=== PATIENT | female | born 1970 | race African-American/Black ===

== ENCOUNTER 2016-07-05 22:08 | Emergency (ER) | payer BC, OTHER ==
--- NOTE | 2016-07-05 22:23 | ER Document Report ---
ED Medical Screen (RME) - General Stated Complaint: LEFT FOOT PAIN Time seen by provider: 22:22 Mode of Arrival: Wheelchair Information source: Patient Notes: [id number] female presents to ED for pain to bilateral feet less one is worse. States she has enough pain also for a couple months. She is a diabetic and takes metformin. Pain in her feet started 2 days ago no injuries no fall. No sores redness to the feet. Pain with ambulation. Last menstrual cycle 06/14 I have greeted and performed a rapid initial assessment of this patient. A comprehensive ED assessment and evaluation of the patient, analysis of test results and completion of medical decision making process will be conducted by an additional ED providers. TRAVEL OUTSIDE OF THE [place] IN LAST 30 DAYS: No - Related Data Allergies/Adverse Reactions: No Known Allergies Allergy (Verified 04/22/16 07:56) Past Medical History - Past Medical History Cardiac Medical History: Reports: Hx Congestive Heart Failure, Hx Heart Attack - 2010, Hx Hypercholesterolemia, Hx Hypertension Pulmonary Medical History: Denies: Hx Tuberculosis Neurological Medical History: Reports: Hx Seizures Endocrine Medical History: Reports: Hx Diabetes Mellitus Type 2 Past Surgical History: Reports: Hx Section - , Hx Cholecystectomy, Hx Tonsillectomy - 1992. Denies: Hx Pacemaker - Immunizations Hx Diphtheria, Pertussis, Tetanus Vaccination: Yes Physical Exam - Vital signs Vitals: Temp Pulse Resp BP Pulse Ox 99.2 F 116 H 16 151/93 H 97 07/05/16 22:13 07/05/16 22:13 07/05/16 22:13 07/05/16 22:13 07/05/16 22:13 Course - Vital Signs Vital signs: Temp Pulse Resp BP Pulse Ox 99.2 F 116 H 16 151/93 H 97 07/05/16 22:13 07/05/16 22:13 07/05/16 22:13 07/05/16 22:13 07/05/16 22:13
[2016-07-05] MEDS ORDERED: ACETAMINOPHEN 325 MG TABLET PO ONE (22:24)
[2016-07-05 23:03] LABS: ABSOLUTE BASOPHILS # (AUTO) 0.1 10^3/uL (0.0-0.2); ABSOLUTE EOSINOPHILS # (AUTO) 0.1 10^3/uL (0.0-0.6); ABSOLUTE LYMPHOCYTES (AUTO) 2.6 10^3/uL (0.5-4.7); ABSOLUTE NEUT (AUTO) 6.1 10^3/uL (1.7-8.2); BASOPHILS % (AUTO) 0.6 % (0-2); HEMATOCRIT 33.5 % (36.0-47.0); HGB HCT DIFFERENCE -0.5; LYMPHOCYTES % (AUTO) 26.7 % (13-45); MEAN CORPUSCULAR HEMOGLOBIN 27.1 pg (27.0-33.4); MEAN CORPUSCULAR HGB CONC 32.7 g/dL (32.0-36.0); MEAN CORPUSCULAR VOLUME 83 fl (80-97); MONOCYTES % (AUTO) 10.2 % (3-13); RED BLOOD COUNT 4.05 10^6/uL (3.72-5.28); SEGMENTED NEUTROPHILS % (AUTO) 61.5 % (42-78); WHITE BLOOD COUNT 9.9 10^3/uL (4.0-10.5)
[2016-07-05 23:26] LABS: ALANINE AMINOTRANSFERASE 39 U/L (9-52); ALBUMIN 4.1 g/dL (3.5-5.0); ALKALINE PHOSPHATASE 162 U/L (38-126); ANION GAP 14 (5-19); ASPARTATE AMINO TRANSFERASE 29 U/L (14-36); BILIRUBIN,TOTAL 0.4 mg/dL (0.2-1.3); BLOOD UREA NITROGEN 11 mg/dL (7-20); CALCIUM 9.9 mg/dL (8.4-10.2); CARBON DIOXIDE 24 mmol/L (22-30); CHLORIDE 106 mmol/L (98-107); CREATININE RESULT 1.02 mg/dL (0.52-1.25); GLUCOSE 117 mg/dL (75-110); POTASSIUM 3.7 mmol/L (3.6-5.0); SODIUM 143.7 mmol/L (137-145); URIC ACID 9.6 mg/dL (2.5-7.5)
[2016-07-06] MEDS ORDERED: COLCHICINE 0.6 MG TABLET PO ONE (03:49)
[2016-07-06] MEDS ORDERED: INDOMETHACIN 50 MG CAPSULE PO ONE (03:50)
[2016-07-06] MEDS ORDERED: HYDROCODONE/ACETAMINOPHEN 5-325 MG 6 TAB/DSPK PO PRN (03:50)
--- NOTE | 2016-07-06 03:56 | ER Document Report ---
ED General - General Chief Complaint: Foot Pain Stated Complaint: LEFT FOOT PAIN Mode of Arrival: Wheelchair Notes: Patient is 45-year-old female presents with complaint of bilateral ankle pain is worse in the left. She has some swelling in her ankles is worse on left. She has a history of gout. She's had gout in both knees. She has been watching her diet. Patient also mentions that she was here in April and had reinjured a old calcaneal fracture. She was placed in a splint and crutches. She deferred or though but the number was not working for the or the office. She occasionally still uses her crutches. This was just over 2 weeks ago. She says that prior to this new onset of pain, the pain associate with her calcaneal fracture had subsided and she was doing much better. TRAVEL OUTSIDE OF THE [place] IN LAST 30 DAYS: No - Related Data Allergies/Adverse Reactions: No Known Allergies Allergy (Verified 04/22/16 07:56) Past Medical History - General Information source: Patient - Social History Smoking Status: Never Smoker Frequency of alcohol use: None Drug Abuse: None Family History: Reviewed & Not Pertinent - Past Medical History Cardiac Medical History: Reports: Hx Congestive Heart Failure, Hx Heart Attack - 2010, Hx Hypercholesterolemia, Hx Hypertension Pulmonary Medical History: Denies: Hx Tuberculosis Neurological Medical History: Reports: Hx Seizures Endocrine Medical History: Reports: Hx Diabetes Mellitus Type 2 Renal/ Medical History: Denies: Hx Peritoneal Dialysis Past Surgical History: Reports: Hx Section - 2, Hx Cholecystectomy, Hx Tonsillectomy - 1992. Denies: Hx Pacemaker - Immunizations Hx Diphtheria, Pertussis, Tetanus Vaccination: Yes Hx Pneumococcal Vaccination: 01/03/12 Review of Systems - Review of Systems Notes: My Normal Review Basic REVIEW OF SYSTEMS: CONSTITUTIONAL : Denies fever, chills, or sweats. Denies recent illness. MUSCULOSKELETAL: Bilateral ankle pain and swelling.. SKIN: Denies rash or skin lesions. NEUROLOGICAL: Denies altered mental status or loss of consciousness. Denies headache. Denies weakness or paralysis or loss of use of either side. Denies problems with gait or speech. Denies sensory or motor loss. ALL OTHER SYSTEMS REVIEWED AND NEGATIVE. Physical Exam - Vital signs Vitals: Temp Pulse Resp BP Pulse Ox 99.2 F 116 H 16 151/93 H 97 07/05/16 22:13 07/05/16 22:13 07/05/16 22:13 07/05/16 22:13 07/05/16 22:13 - Notes Notes: General Appearance: Well nourished, alert, cooperative, no acute distress, moderate obvious discomfort. Vitals: reviewed, See vital signs table. Eyes: PERRL, EOMI, Conjuctiva clear Mouth: No decreasd moisture Extremities: strength 5/5 in all extremities, good pulses in all extremities, patient has a swelling to left ankle. She also has some mild to moderate swelling of the right ankle. It was very painful to touch and painful with movement. This no redness. No evidence of infection. This no evidence of any trauma. Remainder foot is nontender., no edema. Skin: warm, dry, appropriate color, no rash Neuro: speech clear, oriented x 3, normal affect, responds appropriately to questions. Course - Vital Signs Vital signs: Temp Pulse Resp BP Pulse Ox 98.7 F 84 16 160/93 H 99 07/06/16 04:23 07/06/16 04:23 07/06/16 04:23 07/06/16 04:23 07/06/16 04:23 - Laboratory Result Diagrams: 07/05/16 22:45 07/05/16 22:45 Laboratory results interpreted by me: 07/05/16 07/05/16 22:45 22:45 Hgb 11.0 L Hct 33.5 L Est GFR (Non-Af Amer) 58 L Glucose 117 H Uric Acid 9.6 H Alkaline Phosphatase 162 H - Transfer of Care Notes: 07/06/16 07:50 I feel the patient is safe to be discharged home. She looks very well. I suspect that her ankle pain is related to gout. Her clinical exam is consistent with gout and that there is swelling and pain right ankle joint itself and pain to palpation. Also atraumatic. The repeat x-ray does not redemonstrate a calcaneal fracture. I still encourage her to use crutches until the gout flare has gone away and therefore should see if she has any recurrent pain with bearing weight. I did give her the correct number to the orthopedic office for follow-up. I encouraged return to ER if she has fevers, increased swelling, increasing pain, or she feels unwell. Patient will be placed on colchicine and indomethacin. Dictation of this chart was performed using voice recognition software; therefore, there may be some unintended grammatical errors. Discharge - Discharge Clinical Impression: Ankle pain Qualifiers: Laterality: bilateral Chronicity: acute Qualified Code(s): M25.571 - Pain in right ankle and joints of right foot Gout Qualifiers: Gout site: ankle Gout etiology: unspecified cause Laterality: unspecified laterality Chronicity: acute Qualified Code(s): M10.9 - Gout, unspecified Condition: Good Disposition: HOME, SELF-CARE Additional Instructions: Gout You have been diagnosed as having gout. Gout is a problem caused by an excess of uric acid, a natural chemical found in the body. The cause of this disease is unknown. Gout arthritis occurs when crystals of uric acid form in the joints. The big toe is the most common joint involved, but any joint can become affected. Persons with gout may also form uric acid kidney stones, resulting in flank pain and blood in the urine. Nodules of uric acid may form under the skin. The first step of treatment is to decrease the inflammation in the joint with antiinflammatory medication. Medication to lower the uric acid level in the blood may then be prescribed. This medication should be taken regularly, as any sudden change in dosage may provoke an attack of gout. Some foods, such as red meat, can provoke an attack in some gout sufferers. Call the doctor if new symptoms arise, or if you do not improve. Please return to the ER immediately if you develop worsening pain, increasing swelling, fevers, or feel unwell. Please follow up with the orthopedist for close reevaluation. Please follow up with your doctor for continued management of your gout. Please use the crutches until cleared by the orthopedist. Prescriptions: Colchicine [Colchicine 0.6 mg Tablet] 0.6 mg PO DAILY #15 tablet Indomethacin [Indocin 50 Mg Capsule] 50 mg PO TID #21 capsule Referrals: JOSÉ MIGUEL DECKER MD [Primary Care Provider] - Follow up in 3-5 days VENKATA MARTÍNEZ MD [ACTIVE STAFF] - Follow up in 3-5 days
[2016-07-06 04:25] VITALS: BP 160/93
== END 2016-07-06 04:28 | disposition home or self-care (01) ==
LOC: ER 22:08
DX: M25.572 Pain in left ankle and joints of left foot (principal); M10.9 Gout, unspecified; M79.672 Pain in left foot
CPT/HCPCS: 99283; 36415; 84550; 85025; 80053; 73630; J3490

== ENCOUNTER → 2016-10-30 | Outpatient (CLI) | payer BC ==
[2016-10-30 10:57] LABS: HEMATOCRIT 32.7 % (36.0-47.0); HEMOGLOBIN 10.7 g/dL (12.0-15.5); HGB HCT DIFFERENCE -0.6; MEAN CORPUSCULAR HEMOGLOBIN 27.3 pg (27.0-33.4); MEAN CORPUSCULAR HGB CONC 32.7 g/dL (32.0-36.0); MEAN CORPUSCULAR VOLUME 84 fl (80-97); RED BLOOD COUNT 3.91 10^6/uL (3.72-5.28); RED CELL DISTRIBUTION WIDTH 14.2 % (11.5-14.0); WHITE BLOOD COUNT 7.4 10^3/uL (4.0-10.5)
[2016-10-30 11:06] LABS: APPEARANCE,URINE SLIGHTLY-CLOUDY; BILIRUBIN,URINE NEGATIVE (NEGATIVE); GLUCOSE, URINE NEGATIVE (NEGATIVE); KETONES,URINE NEGATIVE (NEGATIVE); LEUKOCYTE ESTERASE,URINE NEGATIVE (NEGATIVE); NITRITE,URINE NEGATIVE (NEGATIVE); PROTEIN,URINE NEGATIVE (NEGATIVE); URINE SPECIFIC GRAVITY 1.025; UROBILINOGEN,URINE NEGATIVE mg/dL (<2.0)
[2016-10-30 11:32] LABS: ANION GAP 14 (5-19); BLOOD UREA NITROGEN 13 mg/dL (7-20); CALCIUM 9.4 mg/dL (8.4-10.2); CARBON DIOXIDE 23 mmol/L (22-30); CHLORIDE 105 mmol/L (98-107); CREATININE RESULT 0.98 mg/dL (0.52-1.25); GLUCOSE 131 mg/dL (75-110); POTASSIUM 4.3 mmol/L (3.6-5.0); SODIUM 141.8 mmol/L (137-145)
[2016-10-30 11:54] LABS: URINE PROTEIN 7.5 mg/dL (<12)
[2016-10-30 12:22] LABS: URINE CREATININE 294.5 mg/dL (15-278)
== END ==
LOC: OD 09:19
PROVIDERS: ATTEND Internal Medicine Nephrology
DX: I12.9 Hypertensive chronic kidney disease with stage 1 through stage 4 chronic kidney disease, or unspecified chronic kidney disease (principal); N18.3 Chronic kidney disease, stage 3 (moderate); E11.9 Type 2 diabetes mellitus without complications; D64.9 Anemia, unspecified; M10.00 Idiopathic gout, unspecified site
CPT/HCPCS: 36415; 80048; 81001; 82570; 84156; 85027; 87086; 87088

== ENCOUNTER → 2016-11-06 | Outpatient (CLI) | payer BC | LOC: OD 11:29 | PROVIDERS: ATTEND Physician Assistant Medical | DX: M10.00 Idiopathic gout, unspecified site (principal); N18.2 Chronic kidney disease, stage 2 (mild) | CPT/HCPCS: 36415; 84550 ==

== ENCOUNTER 2016-11-23 18:27 | Emergency (ER) | payer BC ==
[2016-11-23] MEDS ORDERED: ASPIRIN 81 MG TABLET, CHEWABLE PO ONE (18:44)
--- NOTE | 2016-11-23 18:47 | ER Document Report ---
ED Medical Screen (RME) - General Chief Complaint: Arm Pain Stated Complaint: LEFT ARM PAIN Time Seen by Provider: 11/23/16 18:43 Notes: Patient says that she is having pain in her left arm that started yesterday. The arm is painful to touch or move in any direction. She had pains in the center of her anterior chest from Sunday through . That pain was constant, but it is away and she does not have it today. However, she started having her left arm pain yesterday and it continues. She is concerned because she had a heart attack in 2010 in which she had left arm pain that was similar to her arm pain today. Patient has a history of gout. History of cholecystectomy. Hypertension. NIDDM. Sleep apnea. TRAVEL OUTSIDE OF THE [place] IN LAST 30 DAYS: No - Related Data Allergies/Adverse Reactions: No Known Allergies Allergy (Verified 11/23/16 18:32) Past Medical History - Past Medical History Cardiac Medical History: Reports: Hx Congestive Heart Failure, Hx Heart Attack - 2010, Hx Hypercholesterolemia, Hx Hypertension Pulmonary Medical History: Denies: Hx Tuberculosis Neurological Medical History: Reports: Hx Seizures Endocrine Medical History: Reports: Hx Diabetes Mellitus Type 2 Renal/ Medical History: Denies: Hx Peritoneal Dialysis Past Surgical History: Reports: Hx Section - , Hx Cholecystectomy, Hx Tonsillectomy - 1992. Denies: Hx Pacemaker - Immunizations Hx Diphtheria, Pertussis, Tetanus Vaccination: Yes Physical Exam - Vital signs Vitals: Temp Pulse Resp BP Pulse Ox 98.3 F 88 20 152/105 H 99 11/23/16 18:33 11/23/16 18:33 11/23/16 18:33 11/23/16 18:33 11/23/16 18:33 Course - Vital Signs Vital signs: Temp Pulse Resp BP Pulse Ox 98.3 F 88 20 152/105 H 99 11/23/16 18:33 11/23/16 18:33 11/23/16 18:33 11/23/16 18:33 11/23/16 18:33
[2016-11-23 19:17] LABS: ABSOLUTE BASOPHILS # (AUTO) 0.1 10^3/uL (0.0-0.2); ABSOLUTE EOSINOPHILS # (AUTO) 0.2 10^3/uL (0.0-0.6); ABSOLUTE LYMPHOCYTES (AUTO) 3.2 10^3/uL (0.5-4.7); ABSOLUTE MONOCYTES (AUTO) 0.9 10^3/uL (0.1-1.4); ABSOLUTE NEUT (AUTO) 4.3 10^3/uL (1.7-8.2); BASOPHILS % (AUTO) 1.1 % (0-2); EOSINOPHILS % (AUTO) 2.3 % (0-6); HEMATOCRIT 36.2 % (36.0-47.0); HEMOGLOBIN 11.8 g/dL (12.0-15.5); HGB HCT DIFFERENCE -0.8; LYMPHOCYTES % (AUTO) 36.8 % (13-45); MEAN CORPUSCULAR HEMOGLOBIN 27.5 pg (27.0-33.4); MEAN CORPUSCULAR HGB CONC 32.5 g/dL (32.0-36.0); MEAN CORPUSCULAR VOLUME 85 fl (80-97); MONOCYTES % (AUTO) 10.6 % (3-13); RED BLOOD COUNT 4.28 10^6/uL (3.72-5.28); RED CELL DISTRIBUTION WIDTH 14.4 % (11.5-14.0); SEGMENTED NEUTROPHILS % (AUTO) 49.2 % (42-78); WHITE BLOOD COUNT 8.8 10^3/uL (4.0-10.5)
--- NOTE | 2016-11-23 19:35 | RADIOLOGY REPORT (SQ) ---
EXAM DESCRIPTION: CHEST SINGLE VIEW COMPLETED DATE/TIME: 11/23/2016 7:24 pm REASON FOR STUDY: chest pain COMPARISON: 03/19/2016. EXAM PARAMETERS: NUMBER OF VIEWS: One view. TECHNIQUE: Single frontal radiographic view of the chest acquired. RADIATION DOSE: NA LIMITATIONS: None. FINDINGS: LUNGS AND PLEURA: No opacities, masses or pneumothorax. No pleural effusion. MEDIASTINUM AND HILAR STRUCTURES: No masses. Contour normal. HEART AND VASCULAR STRUCTURES: Heart normal in size. Normal vasculature. BONES: No acute findings. HARDWARE: None in the chest. OTHER: No other significant finding. IMPRESSION: NO ACUTE RADIOGRAPHIC FINDING IN THE CHEST. TECHNICAL DOCUMENTATION: JOB ID: [id number]
[2016-11-23 19:36] LABS: ALANINE AMINOTRANSFERASE 41 U/L (9-52); ALBUMIN 4.2 g/dL (3.5-5.0); ALKALINE PHOSPHATASE 148 U/L (38-126); ANION GAP 11 (5-19); ASPARTATE AMINO TRANSFERASE 32 U/L (14-36); BILIRUBIN,DIRECT 0.3 mg/dL (0.0-0.4); BILIRUBIN,TOTAL 0.4 mg/dL (0.2-1.3); BLOOD UREA NITROGEN 12 mg/dL (7-20); CARBON DIOXIDE 24 mmol/L (22-30); CHLORIDE 105 mmol/L (98-107); CREATINE KINASE 168 U/L (30-135); CREATININE RESULT 1.17 mg/dL (0.52-1.25); GLUCOSE 104 mg/dL (75-110); POTASSIUM 4.2 mmol/L (3.6-5.0); SODIUM 140.4 mmol/L (137-145); TOTAL PROTEIN 8.4 g/dL (6.3-8.2)
--- NOTE | 2016-11-23 19:38 | ER Document Report ---
ED Extremity Problem, Upper - General Chief Complaint: Arm Pain Stated Complaint: LEFT ARM PAIN Time Seen by Provider: 11/23/16 18:43 Notes: The patient is a 46-year-old female, past medical history CAD, gout, presents with 1 day of left arm pain and tingling. She was having mild chest pain yesterday, which has now resolved. She is concerned that she has a another heart attack because of the symptoms again. Pain is worse when she moves her left shoulder and elbow. She denies injury, neck pain, shortness of breath, current chest pain, fevers, rash, leg swelling, hemoptysis or cough. TRAVEL OUTSIDE OF THE [place] IN LAST 30 DAYS: No - Related Data Allergies/Adverse Reactions: No Known Allergies Allergy (Verified 11/23/16 18:32) Past Medical History - General Information source: Patient - Social History Smoking Status: Current Every Day Smoker Chew tobacco use (# tins/day): No Frequency of alcohol use: None Drug Abuse: None Family History: Reviewed & Not Pertinent Patient has suicidal ideation: No Patient has homicidal ideation: No - Past Medical History Cardiac Medical History: Reports: Hx Congestive Heart Failure, Hx Heart Attack - 2010, Hx Hypercholesterolemia, Hx Hypertension Pulmonary Medical History: Reports: Hx Asthma Denies: Hx Tuberculosis Neurological Medical History: Reports: Hx Seizures Endocrine Medical History: Reports: Hx Diabetes Mellitus Type 2 Renal/ Medical History: Denies: Hx Peritoneal Dialysis Past Surgical History: Reports: Hx Section - 2, Hx Cholecystectomy, Hx Tonsillectomy - 1992. Denies: Hx Pacemaker - Immunizations Hx Diphtheria, Pertussis, Tetanus Vaccination: Yes Hx Pneumococcal Vaccination: 01/03/12 Review of Systems - Review of Systems Notes: REVIEW OF SYSTEMS: CONSTITUTIONAL: -fevers, -chills EENT: -eye pain, -difficulty swallowing, -nasal congestion CARDIOVASCULAR:-chest pain, -syncope. RESPIRATORY: -cough, -SOB GASTROINTESTINAL: -abdominal pain, - nausea, -vomiting, -diarrhea GENITOURINARY: -dysuria, -hematuria MUSCULOSKELETAL: +left arm pain, -back pain, -neck pain SKIN: -rash or skin lesions. HEMATOLOGIC: -easy bruising or bleeding. LYMPHATIC: -swollen, enlarged glands. NEUROLOGICAL: -altered mental status or loss of consciousness, -headache, - neurologic symptoms PSYCHIATRIC: -anxiety, -depression. ALL OTHER SYSTEMS REVIEWED AND NEGATIVE. Physical Exam - Vital signs Vitals: Temp Pulse Resp BP Pulse Ox 98.3 F 88 20 152/105 H 99 11/23/16 18:33 11/23/16 18:33 11/23/16 18:33 11/23/16 18:33 11/23/16 18:33 - Notes Notes: PHYSICAL EXAMINATION: GENERAL: Well-appearing, well-nourished and in no acute distress. HEAD: Atraumatic, normocephalic. EYES: Pupils equal round and reactive to light, extraocular movements intact, sclera anicteric, conjunctiva are normal. ENT: nares patent, oropharynx clear without exudates. Moist mucous membranes. NECK: Normal range of motion, supple without lymphadenopathy LUNGS: Breath sounds clear to auscultation bilaterally and equal. No wheezes rales or rhonchi. HEART: Regular rate and rhythm without murmurs ABDOMEN: Soft, nontender, normoactive bowel sounds. No guarding, no rebound. No masses appreciated. EXTREMITIES: Tingling in left C6 distribution. Normal range of motion, no pitting or edema. No cyanosis. Strong distal pulses. NEUROLOGICAL: Cranial nerves grossly intact. Normal speech, normal gait. Normal motor exams. PSYCH: Normal mood, normal affect. SKIN: Warm, Dry, normal turgor, no rashes or lesions noted. Course - Re-evaluation Re-evalutation: Patient appears well. Her EKG, chest x-ray and labs are all unremarkable. HEART score is 2. PERC negative. Patient's pain is in the C6 distribution of her left arm. Instructed her about management of radiculopathy and referral to primary care physician and Ortho as needed. - Vital Signs Vital signs: Temp Pulse Resp BP Pulse Ox 98.3 F 88 20 152/105 H 99 11/23/16 18:33 11/23/16 18:33 11/23/16 18:33 11/23/16 18:33 11/23/16 18:33 - Laboratory Result Diagrams: 11/23/16 18:55 11/23/16 18:44 Laboratory results interpreted by me: 11/23/16 11/23/16 18:44 18:55 Hgb 11.8 L RDW 14.4 H Est GFR (Non-Af Amer) 49 L Alkaline Phosphatase 148 H Creatine Kinase 168 H Total Protein 8.4 H - Diagnostic Test Radiology reviewed: Image reviewed, Reports reviewed Radiology results interpreted by me: CXR: NAD - EKG Interpretation by Me EKG shows normal: Sinus rhythm, [place], Intervals, QRS Complexes, ST-T Waves Rate: Normal Discharge - Discharge Clinical Impression: Radiculopathy of arm Chest pain Qualifiers: Chest pain type: unspecified Qualified Code(s): R07.9 - Chest pain, unspecified Condition: Stable Disposition: HOME, SELF-CARE Additional Instructions: Radiculopathy Radiculopathy is irritation of a nerve. Sometimes this is called "pinched nerve." The pain can be sharp and stabbing, constant and dull, or burning in nature. The pain can occur in any area of the chest, shoulders, or arms. Sometimes the pain is provoked by coughing or moving. Radiculopathy can be caused by physical pressure on a nerve, such as a herniated disc or swollen joint in the spine. It can also be caused by viral infections within the nerve or by nerve damage due to diabetes or blood vessel disease. Radicular pain is treated with antiinflammatory medicine. Injections may help resistant cases, if we can identify a single nerve that's causing the pain. Surgery is usually not necessary. If symptoms do not improve with time, you may need additional testing, such as an MRI or EMG (electromyogram). Return if there is local weakness or numbness, shortness of breath, increasing pain, or other new symptoms. CHEST PAIN OF UNCLEAR CAUSE: The exact cause of your chest pain isn't clear. Fortunately, there is no evidence of a dangerous medical condition. Further testing may be required to find the source of the pain. Most often, we find that this pain is coming from the chest wall -- the muscles or rib joints in the chest. But chest pain can come from the lung and lung lining, the esophagus, the heart valves or heart lining, and even the stomach or gallbladder. Rest. Eat lightly until the pain is gone. We may prescribe medicine for pain and inflammation. You should call the physician immediately if the pain radiates to the shoulder, jaw or arms; if you start to run a fever or develop a cough; or if you develop shortness of breath, or other new or alarming symptoms. NORMAL EXAM AND WORKUP: At this time, your examination and workup show no significant abnormality. No significant abnormal physical findings were noted. All laboratory, EKG, and imaging (x-ray, CT scans, ultrasound) studies that were ordered show no significant abnormality. Although your examination and all studies that were ordered showed no significant abnormal finding, there are no examinations and no studies that are 100% accurate. There is always the possibility that some abnormality could exist and not be detected with physical examination or within the limits and capabilities of laboratory and other studies. You should return or follow up as you were instructed on your visit today for further evaluation if your symptoms do not resolve. FOLLOW-UP CARE: If you have been referred to a physician for follow-up care, call the physician s office for an appointment as you were instructed or within the next two days. If you experience worsening or a significant change in your symptoms, notify the physician immediately or return to the Emergency Department at any time for re-evaluation. Forms: Elevated Blood Pressure
[2016-11-23 19:49] LABS: CREATINE KINASE MB 0.53 ng/mL (<4.55)
[2016-11-23 19:53] LABS: TROPONIN I < 0.012 ng/mL
[2016-11-23] MEDS ORDERED: NAPROXEN 250 MG TABLET PO ONE (20:14)
[2016-11-23 20:18] VITALS: BP 162/80
--- NOTE | 2016-11-24 08:08 | EKG REPORT ---
SEVERITY:- NORMAL ECG - SINUS RHYTHM : Confirmed by: Chase Bender MD 24-Nov-2016 08:08:06
== END 2016-11-23 20:35 | disposition home or self-care (01) ==
LOC: ER 18:27
DX: R07.9 Chest pain, unspecified (principal); M54.10 Radiculopathy, site unspecified; M79.602 Pain in left arm; I25.10 Atherosclerotic heart disease of native coronary artery without angina pectoris; R20.0 Anesthesia of skin; F17.200 Nicotine dependence, unspecified, uncomplicated
CPT/HCPCS: 36415; 71010; 80053; 82550; 82553; 84484; 85025; 93005; 93010; 99284

== ENCOUNTER → 2017-02-16 | Outpatient (CLI) | payer BC ==
[2017-02-16 12:05] LABS: HEMATOCRIT 34.5 % (36.0-47.0); HEMOGLOBIN 11.8 g/dL (12.0-15.5); HGB HCT DIFFERENCE 0.9; MEAN CORPUSCULAR HGB CONC 34.3 g/dL (32.0-36.0); MEAN CORPUSCULAR VOLUME 82 fl (80-97); RED BLOOD COUNT 4.23 10^6/uL (3.72-5.28); WHITE BLOOD COUNT 7.3 10^3/uL (4.0-10.5)
[2017-02-16 12:09] LABS: APPEARANCE,URINE CLEAR; BILIRUBIN,URINE NEGATIVE (NEGATIVE); GLUCOSE, URINE NEGATIVE (NEGATIVE); KETONES,URINE NEGATIVE (NEGATIVE); LEUKOCYTE ESTERASE,URINE NEGATIVE (NEGATIVE); NITRITE,URINE NEGATIVE (NEGATIVE); PROTEIN,URINE 100 mg/dL (NEGATIVE); URINE SPECIFIC GRAVITY 1.017; UROBILINOGEN,URINE NEGATIVE mg/dL (<2.0)
[2017-02-16 12:29] LABS: ANION GAP 12 (5-19); BLOOD UREA NITROGEN 11 mg/dL (7-20); CALCIUM 10.3 mg/dL (8.4-10.2); CARBON DIOXIDE 23 mmol/L (22-30); CHLORIDE 107 mmol/L (98-107); CREATININE RESULT 0.98 mg/dL (0.52-1.25); GLUCOSE 109 mg/dL (75-110); POTASSIUM 4.1 mmol/L (3.6-5.0); SODIUM 141.5 mmol/L (137-145)
== END ==
LOC: OD 11:19
PROVIDERS: ATTEND Physician Assistant Medical
DX: N18.2 Chronic kidney disease, stage 2 (mild) (principal); M10.00 Idiopathic gout, unspecified site; D64.9 Anemia, unspecified
CPT/HCPCS: 36415; 80048; 81001; 85027

== ENCOUNTER 2017-02-18 23:04 | Emergency (ER) | payer BC ==
--- NOTE | 2017-02-19 02:26 | ER Document Report ---
HPI - HPI Patient complains to provider of: nose bleed Pain Level: Denies Context: Patient is a 46-year-old female comes emergency department for chief complaint of nose bleeding from the left nostril. She states that she began bleeding with dripping blood and tasting blood on the back of her throat, she states this continued for an hour and she became worried. Bleeding is stopped before she came to the emergency department. She denies headache, denies chest pain, denies any other symptoms. She states that she just got over a cold and has been taking NyQuil including the past day multiple times a day. She is also on aspirin. She has a past medical history of hypertension and takes 3 medications for this although she is not sure of the names at this time. She states she has been compliant but she is due for a dose. - REPRODUCTIVE Reproductive: DENIES: : - DERM Skin Color: Normal Past Medical History - General Information source: Patient - Social History Smoking Status: Never Smoker Frequency of alcohol use: None Drug Abuse: None Lives with: Family Family History: Reviewed & Not Pertinent Patient has homicidal ideation: No - Past Medical History Cardiac Medical History: Reports: Hx Congestive Heart Failure, Hx Heart Attack - 2010, Hx Hypercholesterolemia, Hx Hypertension Pulmonary Medical History: Reports: Hx Asthma Denies: Hx Tuberculosis Neurological Medical History: Reports: Hx Seizures Endocrine Medical History: Reports: Hx Diabetes Mellitus Type 2 Renal/ Medical History: Denies: Hx Peritoneal Dialysis Past Surgical History: Reports: Hx Section - 2, Hx Cholecystectomy, Hx Tonsillectomy - 1992. Denies: Hx Pacemaker - Immunizations Hx Diphtheria, Pertussis, Tetanus Vaccination: Yes Hx Pneumococcal Vaccination: 01/03/12 Vertical Provider Document - CONSTITUTIONAL General Appearance: WD/WN, No Apparent Distress - INFECTION CONTROL TRAVEL OUTSIDE OF THE [place] IN LAST 30 DAYS: No - HEENT HEENT: Atraumatic, Normal ENT Exam - There is a tiny amount of dried blood in the left nasal passage but otherwise her examination is unremarkable, Normocephalic - NECK Neck: Normal Inspection - RESPIRATORY Respiratory: Breath Sounds Normal, No Respiratory Distress O2 Sat by Pulse Oximetry: 96 - CARDIOVASCULAR Cardiovascular: Regular Rate, Regular Rhythm - GI/ABDOMEN Gastrointestinal: Abdomen Soft, Abdomen Non-Tender - BACK Back: Normal Inspection - MUSCULOSKELETAL/EXTREMETIES Musculoskeletal/Extremeties: MAEW, FROM, Non-Tender - NEURO Level of Consciousness: Awake, Alert, Appropriate Course - Re-evaluation Re-evalutation: Patient is hypertensive. I rechecked it at bedside and her systolic is 180. She is due for medication. She is asymptomatic otherwise, she does not have any rebleeding and has not had it for over 3 hours. She kind of has a set up for bleeding with recent use of antihistamine, aspirin, hypertension, and she admits that she was "putting vapor rub and similar items in her nose which I believe caused irritation. She was advised against this. She was provided with bacitracin, Q-tips, she states that she will take her blood pressure medication immediately when she gets home, I discussed return precautions in detail with patient, patient states understanding and agreement. - Vital Signs Vital signs: Temp Pulse Resp BP Pulse Ox 96 F L 88 18 206/100 H 96 02/18/17 23:15 02/18/17 23:15 02/18/17 23:15 02/18/17 23:15 02/18/17 23:15 Discharge - Discharge Clinical Impression: Epistaxis Condition: Stable Disposition: HOME, SELF-CARE Additional Instructions: There is a significant chance of re-bleeding following a nosebleed. Proper care makes this less likely. Avoid anti-histamines such as benadryl for now. Do not touch the nose for 24 hours. Do not blow the nose forcefully for one week. After 24 hours, gently apply Vaseline ointment or the given Antibiotic ointment to both nostrils with the tip of a finger or Q-tip, three times a day, for one week. Humidity in the bedroom, and petroleum jelly applied to the nostrils at night may help as well. It's normal to have a bloody mucous discharge for a few days. If active bleeding recurs, blow all the blood from the nose, then sit quietly and pinch the nose as firmly as possible for 10 minutes. If this does not stop the bleeding, return for further care. Forms: Elevated Blood Pressure Referrals: LOKESH CASILLAS, [employer] [Primary Care Provider] - Follow up as needed
[2017-02-19 02:27] VITALS: BP 184/95
== END 2017-02-19 02:39 | disposition home or self-care (01) ==
LOC: ER 23:04
DX: R04.0 Epistaxis (principal); I50.9 Heart failure, unspecified; I11.0 Hypertensive heart disease with heart failure; E78.00 Pure hypercholesterolemia, unspecified; E11.9 Type 2 diabetes mellitus without complications; I25.2 Old myocardial infarction; Z79.82 Long term (current) use of aspirin; Z90.49 Acquired absence of other specified parts of digestive tract
CPT/HCPCS: 99283

== ENCOUNTER → 2017-04-26 | Outpatient (CLI) | payer BC ==
[2017-04-26 11:55] LABS: ALANINE AMINOTRANSFERASE 47 U/L (9-52); ALBUMIN 4.1 g/dL (3.5-5.0); ALKALINE PHOSPHATASE 140 U/L (38-126); ASPARTATE AMINO TRANSFERASE 34 U/L (14-36); BILIRUBIN,DIRECT 0.2 mg/dL (0.0-0.4); BILIRUBIN,TOTAL 0.3 mg/dL (0.2-1.3); CHOLESTEROL 236.23 mg/dL (0-200); Direct HDL 54 mg/dL (>40); TOTAL PROTEIN 7.7 g/dL (6.3-8.2); TRIGLYCERIDES 185 mg/dL (<150)
[2017-04-26 12:08] LABS: DIRECT LDL 145 mg/dL (<100)
== END ==
LOC: OD 10:00
PROVIDERS: ATTEND Internal Medicine
DX: E78.5 Hyperlipidemia, unspecified (principal); Z79.899 Other long term (current) drug therapy
CPT/HCPCS: 36415; 80061; 80076; 84443

== ENCOUNTER → 2017-08-24 | Outpatient (CLI) | payer BC ==
[2017-08-24 14:53] LABS: HEMATOCRIT 34.8 % (36.0-47.0); HEMOGLOBIN 11.5 g/dL (12.0-15.5); MEAN CORPUSCULAR HEMOGLOBIN 27.2 pg (27.0-33.4); MEAN CORPUSCULAR VOLUME 82 fl (80-97); PLATELET COUNT 228 10^3/uL (150-450); RED BLOOD COUNT 4.22 10^6/uL (3.72-5.28); RED CELL DISTRIBUTION WIDTH 15.1 % (11.5-14.0); WHITE BLOOD COUNT 6.3 10^3/uL (4.0-10.5)
[2017-08-24 15:07] LABS: APPEARANCE,URINE CLOUDY; BILIRUBIN,URINE NEGATIVE (NEGATIVE); GLUCOSE, URINE NEGATIVE (NEGATIVE); KETONES,URINE NEGATIVE (NEGATIVE); LEUKOCYTE ESTERASE,URINE NEGATIVE (NEGATIVE); NITRITE,URINE NEGATIVE (NEGATIVE); PROTEIN,URINE NEGATIVE (NEGATIVE); URINE SPECIFIC GRAVITY 1.017
[2017-08-24 15:14] LABS: COLOR,URINE YELLOW
[2017-08-24 15:18] LABS: ANION GAP 12 (5-19); BLOOD UREA NITROGEN 12 mg/dL (7-20); CALCIUM 9.6 mg/dL (8.4-10.2); CARBON DIOXIDE 27 mmol/L (22-30); CHLORIDE 101 mmol/L (98-107); GLUCOSE 186 mg/dL (75-110); POTASSIUM 3.9 mmol/L (3.6-5.0); SODIUM 139.6 mmol/L (137-145); URIC ACID 6.5 mg/dL (2.5-7.5)
== END ==
LOC: OD 13:39
PROVIDERS: ATTEND Physician Assistant Medical
DX: I10 Essential (primary) hypertension (principal); E11.9 Type 2 diabetes mellitus without complications; M10.00 Idiopathic gout, unspecified site
CPT/HCPCS: 36415; 80048; 81001; 84550; 85027

== ENCOUNTER → 2018-02-18 | Outpatient (CLI) | payer BC ==
[2018-02-18 15:35] LABS: HEMATOCRIT 33.9 % (36.0-47.0); HEMOGLOBIN 11.7 g/dL (12.0-15.5); MEAN CORPUSCULAR HEMOGLOBIN 28.1 pg (27.0-33.4); MEAN CORPUSCULAR HGB CONC 34.5 g/dL (32.0-36.0); MEAN CORPUSCULAR VOLUME 82 fl (80-97); PLATELET COUNT 221 10^3/uL (150-450); RED BLOOD COUNT 4.15 10^6/uL (3.72-5.28); RED CELL DISTRIBUTION WIDTH 14.1 % (11.5-14.0); WHITE BLOOD COUNT 6.5 10^3/uL (4.0-10.5)
[2018-02-18 15:59] LABS: ANION GAP 11 (5-19); BLOOD UREA NITROGEN 10 mg/dL (7-20); CALCIUM 9.9 mg/dL (8.4-10.2); CARBON DIOXIDE 22 mmol/L (22-30); CHLORIDE 108 mmol/L (98-107); GLUCOSE 111 mg/dL (75-110); SODIUM 141.3 mmol/L (137-145)
[2018-02-18 16:15] LABS: APPEARANCE,URINE CLEAR; BILIRUBIN,URINE SMALL (NEGATIVE); COLOR,URINE YELLOW; GLUCOSE, URINE NEGATIVE (NEGATIVE); KETONES,URINE NEGATIVE (NEGATIVE); PROTEIN,URINE NEGATIVE (NEGATIVE); URINE SPECIFIC GRAVITY 1.021
[2018-02-18 16:16] LABS: ADD MANUAL MICROSCOPIC YES; BACTERIA,URINE 3+ /HPF; LEUKOCYTE ESTERASE,URINE NEGATIVE (NEGATIVE); NITRITE,URINE NEGATIVE (NEGATIVE); WBC,URINE 0-1 /HPF
[2018-02-20 10:38] LABS: CREATININE URINE 293.5 mg/dL (Not Estab.); MICROALBUMIN URINE 26.4 ug/mL (Not Estab.)
== END ==
LOC: OD 14:34
PROVIDERS: ATTEND Physician Assistant Medical
DX: I12.9 Hypertensive chronic kidney disease with stage 1 through stage 4 chronic kidney disease, or unspecified chronic kidney disease (principal); E11.22 Type 2 diabetes mellitus with diabetic chronic kidney disease; N18.2 Chronic kidney disease, stage 2 (mild); R80.9 Proteinuria, unspecified
CPT/HCPCS: 36415; 80048; 81001; 82043; 82570; 85027

== ENCOUNTER 2018-04-03 19:55 | Observation (INO) | payer BC ==
[2018-04-03] MEDS ORDERED: ASPIRIN 81 MG TABLET, CHEWABLE PO ONE (20:05)
--- NOTE | 2018-04-03 20:28 | ER Document Report ---
ED General - General Mode of Arrival: Ambulatory Information source: Patient TRAVEL OUTSIDE OF THE [place] IN LAST 30 DAYS: No <CHRIS HERRERA - Last Filed: 04/03/18 21:00> <TAMIKA OLIVARES - Last Filed: 04/04/18 01:20> - General Chief Complaint: Chest Pain > 30 Stated Complaint: CHEST PAIN Time Seen by Provider: 04/03/18 20:12 Notes: Patient is a 47-year-old female with HTN, high cholesterol, diabetes type 2, gout and a history of NM (2010 and 2017) presents to the emergency department complaining of chest pain onset today. Patient states that the chest pain is located sternally and radiates into the left upper chest, left hand and right arm. She states describes the pain in her arm and hand as a numbness. She states her current symptoms feel similar to her previous MIs. Patient reports taking 1, 81 mg of aspirin this morning and 3 nitroglycerin which did not alleviate her pain. She also complains of vomiting, trouble breathing and diaphoresis. states the patient did not have any stents placed after her 2 MIs. Patient also mentions seeing Dr. Yao for "kidney problems" but does not further elaborate. Patient is currently on Plavix. (CHRIS HERRERA) - Related Data Allergies/Adverse Reactions: No Known Allergies Allergy (Verified 11/23/16 18:32) Past Medical History - General Information source: Patient - Social History Smoking Status: Former Smoker - quit 7 years ago as of 2018 Cigarette use (# per day): No Chew tobacco use (# tins/day): No Smoking Education Provided: No Frequency of alcohol use: None Family History: Reviewed & Not Pertinent - Past Medical History Cardiac Medical History: Reports: Hx Congestive Heart Failure, Hx Heart Attack - 2010, Hx Hypercholesterolemia, Hx Hypertension Pulmonary Medical History: Reports: Hx Asthma Neurological Medical History: Reports: Hx Seizures Endocrine Medical History: Reports: Hx Diabetes Mellitus Type 2 Past Surgical History: Reports: Hx Section - , Hx Cholecystectomy, Hx Tonsillectomy - 1992 - Immunizations Hx Diphtheria, Pertussis, Tetanus Vaccination: Yes Hx Pneumococcal Vaccination: 01/03/12 <CHRIS HERRERA - Last Filed: 04/03/18 21:00> Review of Systems - Review of Systems Constitutional: See HPI, Diaphoresis EENT: No symptoms reported Cardiovascular: See HPI, Chest pain Respiratory: See HPI Gastrointestinal: See HPI, Vomiting Genitourinary: No symptoms reported Female Genitourinary: No symptoms reported Musculoskeletal: No symptoms reported Skin: No symptoms reported Hematologic/Lymphatic: No symptoms reported Neurological/Psychological: No symptoms reported -: Yes All other systems reviewed and negative <SHARONCHRIS - Last Filed: 04/03/18 21:00> Physical Exam <CHRIS HERRERA - Last Filed: 04/03/18 21:00> <TAMIKA OLIVARES - Last Filed: 04/04/18 01:20> - Vital signs Vitals: Temp Pulse Resp BP Pulse Ox 97.6 F 77 18 189/93 H 100 04/03/18 20:00 04/03/18 20:00 04/03/18 20:00 04/03/18 20:00 04/03/18 20:00 - Notes Notes: GENERAL: Alert, interacts well. No acute distress. HEAD: Normocephalic, atraumatic. EYES: Pupils equal, round, and reactive to light. Extraocular movements intact. ENT: Oral mucosa moist, tongue midline. NECK: Full range of motion. Supple. Trachea midline. LUNGS: Clear to auscultation bilaterally, no wheezes, rales, or rhonchi. No respiratory distress. HEART: Regular rate and rhythm. No murmurs, gallops, or rubs. ABDOMEN: Soft, non-tender. Non-distended. Bowel sounds present in all 4 quadrants. EXTREMITIES: Moves all 4 extremities spontaneously. No edema, radial and dorsalis pedis pulses 2/4 bilaterally. No cyanosis. NEUROLOGICAL: Alert and oriented x3. Normal speech. PSYCH: Normal affect, normal mood. SKIN: Warm, dry, normal turgor. No rashes or lesions noted. (SHARONCHRIS) Course - Laboratory Result Diagrams: 04/03/18 20:20 04/03/18 20:20 <SHARONALYXANDREW - Last Filed: 04/03/18 21:00> - Laboratory Result Diagrams: 04/03/18 20:20 04/03/18 20:20 <TAMIKA OLIVARES - Last Filed: 04/04/18 01:20> - Re-evaluation Re-evalutation: 04/04/18 01:18 CBC unremarkable, CMP shows slightly elevated creatinine 1.26 which is higher than her baseline, CK is elevated at 157, CK-MB is normal, initial troponin is undetectable at 0.012, repeated 4 hours later it is 0.015, lipase only mildly elevated at 540.6, abdominal ultrasound shows she is status post cholecystectomy and the pancreas is not visualized due to overlying bowel gas. Chest x-ray shows no acute process. 04/04/18 01:19 EKG is nonischemic. Given the patient's history of 2 prior MIs and the fact that we are unable to obtain the cardiac catheterization report this evening we do feel it is important to observe the patient to trend her enzymes until they stop elevating. I discussed the patient with Dr. Hung who agreed to place the patient on his service in observation status. (TAMIKA OLIVARES) - Vital Signs Vital signs: Temp Pulse Resp BP Pulse Ox 97.6 F 77 16 150/76 H 100 04/03/18 20:00 04/03/18 20:00 04/03/18 23:01 04/03/18 23:01 04/03/18 23:01 - Laboratory Laboratory results interpreted by me: 04/03/18 04/03/18 20:20 20:20 Hct 35.9 L RDW 14.4 H Creatinine 1.26 H Est GFR ( Amer) 55 L Est GFR (Non-Af Amer) 45 L Alkaline Phosphatase 207 H Creatine Kinase 157 H Lipase 540.6 H - EKG Interpretation by Me Additional EKG results interpreted by me: 04/04/18 01:18 EKG shows sinus rhythm at a rate of 72, normal axis, normal intervals, no ST segment questions, there are isolated T wave inversions in lead III per my interpretation. Repeat EKG at 2235 is essentially unchanged, normal axis, first-degree AV block with SC interval of 208, no ST segment elevations or depressions, isolated T wave inversions in lead III per my interpretation. (TAMIKA OLIVARES) Discharge <CHRIS HERRERA - Last Filed: 04/03/18 21:00> - Discharge Admitting Provider: [facility] Admitted: Telemetry <TAMIKA OLIVARES - Last Filed: 04/04/18 01:20> - Discharge Clinical Impression: Chest pain, rule out acute myocardial infarction Pancreatitis Qualifiers: Chronicity: acute Pancreatitis type: unspecified pancreatitis type Acute pancreatitis complication: unspecified Qualified Code(s): K85.90 - Acute pancreatitis without necrosis or infection, unspecified Condition: Fair Disposition: ADMITTED OBSERVATION Referrals: ANDREA ACOSTA PA-C [ALLIED HEALTH PROFESSIONAL] - Follow up as needed Scribe Attestation: 04/04/18 01:20 I personally performed the services described in the documentation, reviewed and edited the documentation which was dictated to the scribe in my presence, and it accurately records my words and actions. (TAMIKA OLIVARES) Scribe Documentation - Scribe Written by Scribe:: Cullen Larson, 04/03/2018 20:58 acting as scribe for :: Shelbi <CHRIS HERRERA - Last Filed: 04/03/18 21:00>
[2018-04-03 20:31] LABS: ABSOLUTE EOSINOPHILS # (AUTO) 0.2 10^3/uL (0.0-0.6); ABSOLUTE LYMPHOCYTES (AUTO) 3.1 10^3/uL (0.5-4.7); ABSOLUTE MONOCYTES (AUTO) 0.9 10^3/uL (0.1-1.4); ABSOLUTE NEUT (AUTO) 3.8 10^3/uL (1.7-8.2); BASOPHILS % (AUTO) 0.4 % (0-2); HEMATOCRIT 35.9 % (36.0-47.0); HEMOGLOBIN 12.2 g/dL (12.0-15.5); LYMPHOCYTES % (AUTO) 38.4 % (13-45); MEAN CORPUSCULAR HEMOGLOBIN 28.2 pg (27.0-33.4); MEAN CORPUSCULAR VOLUME 83 fl (80-97); MONOCYTES % (AUTO) 11.1 % (3-13); PLATELET COUNT 221 10^3/uL (150-450); RED BLOOD COUNT 4.32 10^6/uL (3.72-5.28); RED CELL DISTRIBUTION WIDTH 14.4 % (11.5-14.0); SEGMENTED NEUTROPHILS % (AUTO) 48.1 % (42-78); TOTAL CELLS COUNTED % (AUTO) 100 %
[2018-04-03] MEDS: NITROGLYCERIN 0.4 MG/TAB 25 TAB/BOTTLE SL PRN ×3 (20:33→20:47)
[2018-04-03 20:52] LABS: ALANINE AMINOTRANSFERASE 32 U/L (9-52); ALKALINE PHOSPHATASE 207 U/L (38-126); ANION GAP 11 (5-19); ASPARTATE AMINO TRANSFERASE 29 U/L (14-36); BILIRUBIN,DIRECT 0.3 mg/dL (0.0-0.4); BILIRUBIN,TOTAL 0.4 mg/dL (0.2-1.3); BLOOD UREA NITROGEN 14 mg/dL (7-20); CALCIUM 10.2 mg/dL (8.4-10.2); CARBON DIOXIDE 26 mmol/L (22-30); CHLORIDE 107 mmol/L (98-107); CREATINE KINASE 157 U/L (30-135); GLUCOSE 104 mg/dL (75-110); LIPASE 540.6 U/L (23-300); POTASSIUM 4.4 mmol/L (3.6-5.0); SODIUM 144.1 mmol/L (137-145); TOTAL PROTEIN 7.8 g/dL (6.3-8.2)
[2018-04-03 21:04] LABS: CREATINE KINASE MB 0.47 ng/mL (<4.55); TROPONIN I < 0.012 ng/mL
--- NOTE | 2018-04-03 21:19 | RADIOLOGY REPORT (SQ) ---
XR CHEST 1 VIEW HISTORY: Chest pain. COMPARISON: 11/23/2016 FINDINGS: Query mild cardiomegaly. Lungs are clear. No pleural effusion or pneumothorax is seen. No acute osseous findings. IMPRESSION: No acute cardiopulmonary abnormality.
--- NOTE | 2018-04-03 23:47 | RADIOLOGY REPORT (SQ) ---
US ABDOMEN LIMITED HISTORY: Elevated lipase. Pain after eating. COMPARISON: None. TECHNIQUE: Grayscale and color Doppler imaging of the right upper quadrant was performed. FINDINGS: The liver measures 17.0 cm. Increased echogenicity of the hepatic parenchyma with decreased through transmission and poor visualization of the portal triads, suggesting hepatic steatosis. The main portal vein has normal hepatopedal flow. Status post cholecystectomy. Common bile duct measures 3 mm in caliber. The pancreas is not well-visualized due to overlying bowel gas. Right kidney measures 10.8 cm in length, without hydronephrosis. Visualized portions of the IVC and aorta are patent. IMPRESSION: Pancreas is poorly visualized due to overlying bowel gas and body habitus. Status post cholecystectomy. Mild hepatomegaly and hepatic steatosis.
[2018-04-04] MEDS ORDERED: GLUCAGON,HUMAN RECOMB 1 MG INJ SUBCUT PRN (02:10)
[2018-04-04] MEDS ORDERED: NITROGLYCERIN 0.4 MG/TAB 25 TAB/BOTTLE SL PRN (02:10)
[2018-04-04] MEDS ORDERED: DEXTROSE 40% GEL 15 GM TUBE PO PRN ×2 (02:10)
[2018-04-04] MEDS ORDERED: DEXTROSE 50%-WATER 25 GM/50 ML DISP.SYRIN IV PRN ×2 (02:10)
[2018-04-04] MEDS ORDERED: ATORVASTATIN CALCIUM 80 MG TABLET PO ONE (02:30)
[2018-04-04] MEDS: VALSARTAN 80 MG TABLET PO SCH ×2 (03:07→10:11)
[2018-04-04] MEDS ORDERED: NITROGLYCERIN 2% OINTMENT 1 GM PACKET ONE (05:49)
[2018-04-04] MEDS ORDERED: ENALAPRILAT DIHYDRATE INJ/PF 1.25 MG/1 ML SDV IV ONE ×2 (05:49→06:00)
[2018-04-04] MEDS ORDERED: INSULIN LISPRO 100 UNIT/ML 3 ML VIAL SUBCUT PRN (05:50)
[2018-04-04] MEDS ORDERED: NITROGLYCERIN 2% OINTMENT 1 GM PACKET TP ONE (06:00)
[2018-04-04] MEDS ORDERED: LACTULOSE SYRUP 20 GM/30 ML UDCUP PO ONE (06:21)
--- NOTE | 2018-04-04 06:32 | PDOC H&P ---
History of Present Illness Admission Date/PCP: 04/04/18 01:28 AYANA DECKER MD Patient complains of: Chest pain and uncontrolled blood pressure History of Present Illness: ARMIDA HILLS is a 47 year old female with a past medical history of goiter, morbid obesity, obstructive sleep apnea, hypertension, coronary artery disease stage II chronic kidney disease and diabetes. Patient complains of 2 weeks of chest pain occurring at rest and uncontrolled blood pressure in the 200 systolic range despite increased frequency of clonidine recommended by her collar closer lockstitch Dr. Frank Yao. Patient states NV times 06/2010 and 2017 with cardiac catheterization without stenting 5 months ago. She is unable to identify alleviating or exacerbating factors, it is dull in nature and radiates to the left side, associated with shortness of breath. Denies palpitations nausea or vomiting. In the emergency room she is found to have a blood pressure of 210/110 without significant EKG changes or lab findings she receives nitroglycerin, Lasix and referred to the hospitalist for admission. She is currently pain-free. She admits excessive fatigue, daytime sleepiness and noncompliance with CPAP over the last month. Past Medical History Cardiac Medical History: Reports: Congestive Heart Failure, Myocardial Infarction - 2010 AND 2017, Hyperlipidema, Hypertension Pulmonary Medical History: Reports: Asthma Denies: Tuberculosis Neurological Medical History: Reports: Seizures Endocrine Medical History: Reports: Diabetes Mellitus Type 2 Past Surgical History Past Surgical History: Reports: Section - 2, Cholecystectomy, Tonsillectomy - 1992 Denies: Pacemaker Social History Smoking Status: Former Smoker Hx Recreational Drug Use: No Hx Prescription Drug Abuse: No Family History Family History: Reviewed & Not Pertinent Parental Family History Reviewed: Yes Children Family History Reviewed: Yes Sibling(s) Family History Reviewed.: Yes Medication/Allergy Home Medications: Nitroglycerin [Nitrostat 0.4 mg (1/150 Gr) Tabs 25/Bottle] 0.4 mg SL Q5MP PRN Bupropion HCl [Bupropion HCl Sr] 150 mg PO DAILY 08/23/13 Carvedilol [Coreg 25 mg Tablet] 1 tab PO BID 08/23/13 Furosemide [Lasix 20 mg Tablet] 20 mg PO QAM 08/23/13 Lisinopril/Hydrochlorothiazide [Lisinopril-Hctz 20-25 mg Tab] 1 each PO BID 04/26 Methocarbamol [Robaxin] 500 mg PO DAILY 08/23/13 Nifedipine [Nifedipine ER] 30 mg PO DAILY 08/23/13 Nitroglycerin [Nitrostat] 0.3 mg SL PRN PRN #30 tab.subl 08/23/13 Omeprazole 20 mg PO QAM 08/23/13 Albuterol Sulfate [Proair HFA Inhalation Aerosol 8.5 gm MDI] 2 puff IH Q4H PRN # 1 mdi 10/05/15 Fluticasone Propionate [Flonase Nasal Diboll 50 Mcg/Diboll 16 gm] 1 spray NASL Q12 #1 inhaler 10/05/15 Prednisone [Deltasone 20 mg Tablet] 2 tab PO DAILY #8 tablet 10/05/15 Hydrocodone/Acetaminophen [Parker 5-325 Tablet] 1 each PO Q4HP PRN #20 tablet Prednisone [Deltasone 20 mg Tablet] 3 tab PO DAILY 5 Days tablet 03/03/16 Oxycodone HCl/Acetaminophen [Percocet 5-325 mg Tablet] 1 - 2 tab PO ASDIR PRN # 15 tablet 03/19/16 Hydrocodone/Acetaminophen [Parker 5-325 mg Tablet] 1 tab PO Q6H PRN #8 tablet 02/26 Naproxen 500 mg PO BIDP PRN #10 tablet 04/22/16 Colchicine [Colchicine 0.6 mg Tablet] 0.6 mg PO DAILY #15 tablet 07/06/16 Indomethacin [Indocin 50 Mg Capsule] 50 mg PO TID #21 capsule 07/06/16 Allergies/Adverse Reactions: No Known Allergies Allergy (Verified 11/23/16 18:32) Review of Systems Constitutional: PRESENT: as per HPI, fatigue, weight gain. ABSENT: anorexia, fever(s) Eyes: ABSENT: visual disturbances Ears: ABSENT: hearing changes Cardiovascular: PRESENT: chest pain, dyspnea on exertion. ABSENT: edema, orthropnea, palpitations Respiratory: PRESENT: dyspnea. ABSENT: cough, hemoptysis, sputum Gastrointestinal: ABSENT: abdominal pain, constipation, diarrhea, hematemesis, hematochezia, nausea, vomiting Genitourinary: ABSENT: dysuria, hematuria Musculoskeletal: ABSENT: joint swelling Integumentary: ABSENT: rash, wounds Neurological: ABSENT: abnormal gait, abnormal speech, confusion, dizziness, focal weakness, syncope Psychiatric: ABSENT: anxiety, depression, homidical ideation, suicidal ideation Endocrine: ABSENT: cold intolerance, heat intolerance, polydipsia, polyuria Hematologic/Lymphatic: ABSENT: easy bleeding, easy bruising Physical Exam Vital Signs: Temp Pulse Resp BP Pulse Ox 97.7 F 70 20 203/82 H 99 04/04/18 02:10 04/04/18 05:53 04/04/18 02:01 04/04/18 05:53 04/04/18 02:10 Intake & Output 04/02/18 04/03/18 04/04/18 11:59 11:59 11:59 Weight 127.913 kg General appearance: PRESENT: cooperative, mild distress, morbidly obese Head exam: PRESENT: atraumatic, normocephalic Eye exam: PRESENT: conjunctiva pink, EOMI, PERRLA. ABSENT: scleral icterus Ear exam: PRESENT: normal external ear exam Mouth exam: PRESENT: moist, tongue midline Neck exam: PRESENT: other - Diffuse goiter. ABSENT: carotid bruit, JVD, lymphadenopathy, thyromegaly Respiratory exam: PRESENT: crackles, symmetrical. ABSENT: rales, rhonchi, wheezes Cardiovascular exam: PRESENT: gallop, RRR. ABSENT: diastolic murmur, rubs, systolic murmur Pulses: PRESENT: normal dorsalis pedis pul Vascular exam: PRESENT: normal capillary refill GI/Abdominal exam: PRESENT: normal bowel sounds, soft. ABSENT: distended, guarding, mass, organolmegaly, rebound, tenderness Rectal exam: PRESENT: deferred Extremities exam: PRESENT: full ROM. ABSENT: calf tenderness, clubbing, pedal edema Neurological exam: PRESENT: alert, awake, oriented to person, oriented to place , oriented to time, oriented to situation, CN II-XII grossly intact. ABSENT: motor sensory deficit Psychiatric exam: PRESENT: appropriate affect, normal mood. ABSENT: homicidal ideation, suicidal ideation Skin exam: PRESENT: dry, intact, warm. ABSENT: cyanosis, rash Results Impressions: Chest X-Ray 04/03/18 20:05 IMPRESSION: No acute cardiopulmonary abnormality. Abdomen Ultrasound 04/03/18 22:10 IMPRESSION: Pancreas is poorly visualized due to overlying bowel gas and body habitus. Status post cholecystectomy. Mild hepatomegaly and hepatic steatosis. Assessment & Plan - Diagnosis (1) Hypertensive urgency Is this a current diagnosis for this admission?: Yes Plan: IMCU admission, nitroglycerin, IV ROSAURA inhibitor and diuresis. (2) Obstructive sleep apnea Is this a current diagnosis for this admission?: Yes Plan: Resume CPAP and education given noncompliance (3) Morbid obesity Is this a current diagnosis for this admission?: Yes Plan: Morbid obesity will evaluate for metabolic cause with evaluation of thyroid function and dietitian consultation (4) Chest pain, rule out acute myocardial infarction Is this a current diagnosis for this admission?: Yes Plan: Likely secondary to hypertensive urgency, recent cardiac catheterization report requested and pending. Consider cardiology consult with her clinical nurse Dr. Villanueva - Time Time Spent: 50 to 70 Minutes - Inpatient Certification Medical Necessity: Need Close Monitoring Due to Risk of Patient Decompensation
[2018-04-04 07:30] LABS: CREATINE KINASE MB 0.39 ng/mL (<4.55)
[2018-04-04 07:36] LABS: TROPONIN I < 0.012 ng/mL
[2018-04-04] MEDS ORDERED: HYDRALAZINE HCL INJ/PF 20 MG/1 ML SDV IV PRN (09:20)
--- NOTE | 2018-04-04 09:36 | EKG REPORT ---
SEVERITY:- NORMAL ECG - SINUS RHYTHM : Confirmed by: Mya Villanueva MD 04-Apr-2018 09:36:17
[2018-04-04 09:49] VITALS: BP 184/97
[2018-04-04] MEDS ORDERED: CARVEDILOL 12.5 MG TABLET PO SCH (10:00)
[2018-04-04] MEDS ORDERED: DOCUSATE SODIUM 100 MG CAPSULE PO SCH (10:00)
[2018-04-04 10:26] LABS: URINE AMPHETAMINES SCREEN NEGATIVE; URINE BARBITURATES SCREEN NEGATIVE; URINE BENZODIAZEPINES SCREEN NEGATIVE; URINE COCAINE SCREEN NEGATIVE; URINE MARIJUANA (THC) SCREEN NEGATIVE; URINE METHADONE SCREEN NEGATIVE; URINE PHENCYCLIDINE SCREEN NEGATIVE
--- NOTE | 2018-04-04 12:59 | PDOC DISCHARGE SUMMARY ---
General - Admit/Disc Date/PCP Admission Date/Primary Care Provider: 04/04/18 01:28 AYANA DECKER MD Discharge Date: 04/04/18 - Discharge Diagnosis (1) Atypical chest pain Is this a current diagnosis for this admission?: Yes Summary: Presented with elevated BP. Has history of intermittent chest pain. No typical for acute MS. Troponins trended and 1st and 3rd trops are negative. on exam, she does have chest wall tenderness --> MSK component. No active CP at time of discharge. Has had cardiac cath in past, which was negative per patient. - Follow up with PCP - Should contact extender for adjustment for blood pressure medications. (2) Depression Is this a current diagnosis for this admission?: Yes Summary: Per patient, started in July 2017 following unexpected of brother. Depression screen positive on exam. - Has been advised to start on anti-depressants by PCP but refused previously - Pt admits to depression today and we discussed trial of SSRI or Trazodone ( which would help with mood and insomnia - Should discuss with PCP to start and monitor (3) Insomnia Is this a current diagnosis for this admission?: Yes Summary: Last 6+ months - Trial trazodone per above - Did NOT given script today (4) Elevated lipase Is this a current diagnosis for this admission?: Yes Summary: Noted to be elevated at admission. Has history of gallstone and GB was removed earlier this year. - No active abdominal symptoms at discharge and specifically denies abdominal pain, NV - CT AP at admission unable to visualize pancreas well - Advised to have lipase checked on 04/05 by PCP to ensure it is trending down - Increase fluid intake (5) DON (acute kidney injury) Is this a current diagnosis for this admission?: Yes Summary: LIkely pre-renal - Increase PO intake - Advised to have BMP repeated by PCP on 04/05 - Additional Information Discharge Diet: Cardiac Discharge Activity: Activity As Tolerated History of Present Illness Patient complains of: chest pain History of Present Illness: ARMIDA HILLS is a 47 year old female with a PMH of goiter, morbid obesity, obstructive sleep apnea, hypertension, CAD, CKD and diabetes. Patient complains of 2 weeks of chest pain occurring at rest and uncontrolled blood pressure in the 200 systolic range despite increased frequency of clonidine recommended by her aquatics instructor Dr. Frank Yao. Patient states MS times 2010 and 2017 with cardiac catheterization without stenting 5 months ago. She is unable to identify alleviating or exacerbating factors, it is dull in nature and radiates to the left side, associated with shortness of breath. Denies palpitations nausea or vomiting. In the emergency room she is found to have a blood pressure of 210/110 without significant EKG changes or lab findings she receives nitroglycerin, Lasix and referred to the hospitalist for admission. She is currently pain-free. She admits excessive fatigue, daytime sleepiness and noncompliance with CPAP over the last month. Admitted to hospitalist service. Physical Exam Vital Signs: Temp Pulse Resp BP Pulse Ox 98.1 F 72 24 H 184/97 H 99 04/04/18 11:44 04/04/18 11:44 04/04/18 11:44 04/04/18 11:44 04/04/18 11:44 Intake & Output 04/03/18 04/04/18 04/05/18 06:59 06:59 06:59 Weight 127.913 kg General appearance: PRESENT: no acute distress, cooperative Head exam: PRESENT: atraumatic Mouth exam: PRESENT: moist Respiratory exam: PRESENT: chest wall tenderness, unlabored. ABSENT: wheezes Cardiovascular exam: PRESENT: +S1, +S2. ABSENT: tachycardia GI/Abdominal exam: PRESENT: soft. ABSENT: tenderness Musculoskeletal exam: PRESENT: full ROM Neurological exam: PRESENT: alert, awake, CN II-XII grossly intact Psychiatric exam: PRESENT: anxious, depressed Skin exam: PRESENT: dry, intact Results Laboratory Results: 04/04/18 06:34 TSH 1.79 04/04/18 06:34 CK-MB (CK-2) 0.39 Troponin I < 0.012 Impressions: Chest X-Ray 04/03/18 20:05 IMPRESSION: No acute cardiopulmonary abnormality. Abdomen Ultrasound 04/03/18 22:10 IMPRESSION: Pancreas is poorly visualized due to overlying bowel gas and body habitus. Status post cholecystectomy. Mild hepatomegaly and hepatic steatosis. Qualifiers - * PATIENT BEING DISCHARGED WITH ANY OF THE FOLLOWING DIAGNOSIS: No Plan Time Spent: Less than 30 Minutes
[2018-04-04] MEDS ORDERED: ATORVASTATIN CALCIUM 80 MG TABLET PO SCH (22:00)
== END 2018-04-04 12:30 | disposition home or self-care (01) ==
LOC: ER 19:55 → EH 04-04 01:28 → 4S 04-04 02:43
PROVIDERS: ADMIT Internal Medicine; ATTEND Internal Medicine
DX: R07.89 Other chest pain (principal); F32.9 Major depressive disorder, single episode, unspecified; G47.00 Insomnia, unspecified; N17.9 Acute kidney failure, unspecified; R74.8 Abnormal levels of other serum enzymes; I16.0 Hypertensive urgency; I13.0 Hypertensive heart and chronic kidney disease with heart failure and stage 1 through stage 4 chronic kidney disease, or unspecified chronic kidney disease; E11.22 Type 2 diabetes mellitus with diabetic chronic kidney disease; N18.2 Chronic kidney disease, stage 2 (mild); I50.9 Heart failure, unspecified; G47.33 Obstructive sleep apnea (adult) (pediatric); R16.0 Hepatomegaly, not elsewhere classified; K76.0 Fatty (change of) liver, not elsewhere classified; I25.10 Atherosclerotic heart disease of native coronary artery without angina pectoris; R06.02 Shortness of breath; J45.909 Unspecified asthma, uncomplicated; R53.83 Other fatigue; E04.9 Nontoxic goiter, unspecified; E66.01 Morbid (severe) obesity due to excess calories; R20.0 Anesthesia of skin; I25.2 Old myocardial infarction; Z63.4 Disappearance and death of family member; Z87.19 Personal history of other diseases of the digestive system; Z91.19 Patient's noncompliance with other medical treatment and regimen; Z90.49 Acquired absence of other specified parts of digestive tract; Z87.891 Personal history of nicotine dependence; Z68.42 Body mass index [BMI] 45.0-49.9, adult; Z79.02 Long term (current) use of antithrombotics/antiplatelets
CPT/HCPCS: 93005; 99285; 36415 ×2; 82553 ×2; 82962; 82550; 83690; 84443; 85025; 80053; 84484 ×2; 80307; 83880; 71045; 76705; 93010; G0378 ×2; J0360; J3490 ×3

== ENCOUNTER → 2018-06-26 | Outpatient (CLI) | payer BC ==
[2018-06-26 10:44] LABS: HEMATOCRIT 33.7 % (36.0-47.0); HEMOGLOBIN 11.4 g/dL (12.0-15.5); MEAN CORPUSCULAR HGB CONC 33.8 g/dL (32.0-36.0); MEAN CORPUSCULAR VOLUME 83 fl (80-97); PLATELET COUNT 190 10^3/uL (150-450); RED BLOOD COUNT 4.06 10^6/uL (3.72-5.28)
[2018-06-26 11:10] LABS: APPEARANCE,URINE SLIGHTLY-CLOUDY; BILIRUBIN,URINE NEGATIVE (NEGATIVE); COLOR,URINE YELLOW; GLUCOSE, URINE NEGATIVE (NEGATIVE); KETONES,URINE NEGATIVE (NEGATIVE); LEUKOCYTE ESTERASE,URINE NEGATIVE (NEGATIVE); NITRITE,URINE NEGATIVE (NEGATIVE); PROTEIN,URINE NEGATIVE (NEGATIVE); URINE SPECIFIC GRAVITY 1.018
[2018-06-26 11:11] LABS: ANION GAP 7 (5-19); BLOOD UREA NITROGEN 15 mg/dL (7-20); CALCIUM 9.4 mg/dL (8.4-10.2); CARBON DIOXIDE 25 mmol/L (22-30); CHLORIDE 107 mmol/L (98-107); GLUCOSE 147 mg/dL (75-110); POTASSIUM 4.5 mmol/L (3.6-5.0); SODIUM 139.3 mmol/L (137-145)
[2018-06-27 10:38] LABS: MICROALBUMIN URINE 8.8 ug/mL (Not Estab.)
== END ==
LOC: OD 10:03
PROVIDERS: ATTEND Physician Assistant Medical
DX: E11.22 Type 2 diabetes mellitus with diabetic chronic kidney disease (principal); I12.9 Hypertensive chronic kidney disease with stage 1 through stage 4 chronic kidney disease, or unspecified chronic kidney disease; E11.9 Type 2 diabetes mellitus without complications; R80.9 Proteinuria, unspecified
CPT/HCPCS: 36415; 80048; 81001; 82043; 82570; 85027

== ENCOUNTER → 2018-10-14 | Outpatient (CLI) | payer BC ==
[2018-10-14 17:19] LABS: HEMATOCRIT 34.1 % (36.0-47.0); HEMOGLOBIN 11.4 g/dL (12.0-15.5); MEAN CORPUSCULAR HEMOGLOBIN 27.3 pg (27.0-33.4); MEAN CORPUSCULAR HGB CONC 33.5 g/dL (32.0-36.0); MEAN CORPUSCULAR VOLUME 82 fl (80-97); PLATELET COUNT 187 10^3/uL (150-450); RED BLOOD COUNT 4.18 10^6/uL (3.72-5.28); RED CELL DISTRIBUTION WIDTH 14.3 % (11.5-14.0); WHITE BLOOD COUNT 6.5 10^3/uL (4.0-10.5)
[2018-10-14 17:19] LABS: APPEARANCE,URINE CLOUDY; BILIRUBIN,URINE NEGATIVE (NEGATIVE); CALCIUM OXALATE CRYSTALS,URINE MANY /HPF; GLUCOSE, URINE 50 mg/dL (NEGATIVE); KETONES,URINE NEGATIVE (NEGATIVE); LEUKOCYTE ESTERASE,URINE NEGATIVE (NEGATIVE); NITRITE,URINE NEGATIVE (NEGATIVE); PROTEIN,URINE NEGATIVE (NEGATIVE); URINE SPECIFIC GRAVITY 1.027; UROBILINOGEN,URINE NEGATIVE mg/dL (<2.0)
[2018-10-14 17:22] LABS: COLOR,URINE YELLOW
[2018-10-14 17:41] LABS: ANION GAP 11 (5-19); BLOOD UREA NITROGEN 14 mg/dL (7-20); CALCIUM 10.1 mg/dL (8.4-10.2); CARBON DIOXIDE 26 mmol/L (22-30); CHLORIDE 104 mmol/L (98-107); GLUCOSE 250 mg/dL (75-110); SODIUM 140.8 mmol/L (137-145)
[2018-10-16 10:38] LABS: CREATININE URINE 268.5 mg/dL (Not Estab.); MICROALBUMIN URINE 63.3 ug/mL (Not Estab.)
== END ==
LOC: OD 16:26
PROVIDERS: ATTEND Physician Assistant Medical
DX: I12.9 Hypertensive chronic kidney disease with stage 1 through stage 4 chronic kidney disease, or unspecified chronic kidney disease (principal); N18.2 Chronic kidney disease, stage 2 (mild); E11.22 Type 2 diabetes mellitus with diabetic chronic kidney disease; R80.9 Proteinuria, unspecified
CPT/HCPCS: 36415; 80048; 81001; 82043; 82570; 85027

== ENCOUNTER 2018-12-03 14:06 | Emergency (ER) | payer BC ==
[2018-12-03] MEDS ORDERED: OXYCODONE-ACETAMINOPHEN 5-325 MG TABLET PO ONE (14:59)
--- NOTE | 2018-12-03 15:05 | ER Document Report ---
ED Medical Screen (RME) - General Chief Complaint: Flank Pain Stated Complaint: RIGHT LEG PAIN Time Seen by Provider: 12/03/18 14:47 Primary Care Provider: ANDREA ACOSTA PA-C [Primary Care Provider] - Follow up as needed TRAVEL OUTSIDE OF THE [place] IN LAST 30 DAYS: No - HPI Notes: 12/03/18 15:00 48-year-old female to the emergency department with complaints of 5 days of right flank and low back pain that radiates down the back of her right leg. She denies any falls, saddle paresthesias, bladder bowel incontinence, urinary retention. Does admit to urinary frequency but denies any hematuria. She denies any fevers. She has intense pain with any movement. She has been taking Tylenol without relief. She also reports left foot swelling the past 2 days that she thought was an exacerbation of her gout. She took her gout medicine and it has improved. She denies any falls or blunt trauma. Does state that she has a history of kidney stones but that was more than 10 years ago. She is a patient who has had a heart attack. She had 2 stents placed. She states that she has been doing well other than in the past 5 days. I have performed a medical screening exam on this patient and will order labs, pain control, imaging on this patient and have her seen by me inside provider. - Related Data Allergies/Adverse Reactions: No Known Allergies Allergy (Verified 12/03/18 14:29) Past Medical History - Social History Chew tobacco use (# tins/day): No Frequency of alcohol use: None Drug Abuse: None - Past Medical History Cardiac Medical History: Reports: Hx Congestive Heart Failure, Hx Heart Attack - 2010 AND 2017, Hx Hypercholesterolemia, Hx Hypertension Pulmonary Medical History: Reports: Hx Asthma Denies: Hx Tuberculosis Neurological Medical History: Reports: Hx Seizures Endocrine Medical History: Reports: Hx Diabetes Mellitus Type 2 Renal/ Medical History: Reports: Hx Kidney Stones - L kidney disease. Denies: Hx Peritoneal Dialysis Past Surgical History: Reports: Hx Section - 2, Hx Cholecystectomy, Hx Tonsillectomy - 1992. Denies: Hx Pacemaker - Immunizations Hx Diphtheria, Pertussis, Tetanus Vaccination: Yes History of Influenza Vaccine for 02/2017 - 07/2017 Season: Refused Physical Exam - Vital signs Vitals: Temp Pulse Resp BP Pulse Ox 97.5 F 81 17 140/72 H 98 07/23/19 14:36 12/03/18 14:36 12/03/18 14:36 12/03/18 14:36 12/03/18 14:36 Interpretation: Hypertensive - Respiratory Respiratory status: No respiratory distress Chest status: Nontender Breath sounds: Normal Chest palpation: Normal - Cardiovascular Rhythm: Regular Heart sounds: Normal auscultation Murmur: No - Back Back: Tender, CVA tenderness, Vertebra tenderness - there is TTP over the midline upper lumbar spine and to the right CVA region. Patient has + SLR on the right leg. Course - Vital Signs Vital signs: Temp Pulse Resp BP Pulse Ox 97.5 F 81 17 140/72 H 98 12/03/18 14:36 12/03/18 14:36 12/03/18 14:36 12/03/18 14:36 12/03/18 14:36 Doctor's Discharge - Discharge Referrals: ANDREA ACOSTA PA-C [Primary Care Provider] - Follow up as needed
[2018-12-03 15:43] LABS: ABSOLUTE EOSINOPHILS # (AUTO) 0.1 10^3/uL (0.0-0.6); ABSOLUTE LYMPHOCYTES (AUTO) 2.7 10^3/uL (0.5-4.7); ABSOLUTE MONOCYTES (AUTO) 0.6 10^3/uL (0.1-1.4); ABSOLUTE NEUT (AUTO) 3.9 10^3/uL (1.7-8.2); BASOPHILS % (AUTO) 0.7 % (0-2); EOSINOPHILS % (AUTO) 1.4 % (0-6); HEMATOCRIT 36.2 % (36.0-47.0); LYMPHOCYTES % (AUTO) 37.4 % (13-45); MEAN CORPUSCULAR HEMOGLOBIN 27.2 pg (27.0-33.4); MEAN CORPUSCULAR HGB CONC 33.1 g/dL (32.0-36.0); MEAN CORPUSCULAR VOLUME 82 fl (80-97); MONOCYTES % (AUTO) 7.7 % (3-13); PLATELET COUNT 185 10^3/uL (150-450); RED CELL DISTRIBUTION WIDTH 14.4 % (11.5-14.0); SEGMENTED NEUTROPHILS % (AUTO) 52.8 % (42-78); TOTAL CELLS COUNTED % (AUTO) 100 %; WHITE BLOOD COUNT 7.3 10^3/uL (4.0-10.5)
[2018-12-03 16:01] LABS: ALANINE AMINOTRANSFERASE 39 U/L (9-52); ALKALINE PHOSPHATASE 200 U/L (38-126); ANION GAP 11 (5-19); ASPARTATE AMINO TRANSFERASE 39 U/L (14-36); BILIRUBIN,DIRECT 0.2 mg/dL (0.0-0.4); BILIRUBIN,TOTAL 0.3 mg/dL (0.2-1.3); BLOOD UREA NITROGEN 21 mg/dL (7-20); CALCIUM 9.8 mg/dL (8.4-10.2); CARBON DIOXIDE 24 mmol/L (22-30); CHLORIDE 100 mmol/L (98-107); GLUCOSE 325 mg/dL (75-110); POTASSIUM 4.1 mmol/L (3.6-5.0); TOTAL PROTEIN 7.5 g/dL (6.3-8.2)
[2018-12-03 16:07] LABS: APPEARANCE,URINE SLIGHTLY-CLOUDY; BILIRUBIN,URINE NEGATIVE (NEGATIVE); COLOR,URINE YELLOW; GLUCOSE, URINE >=500 mg/dL (NEGATIVE); KETONES,URINE NEGATIVE (NEGATIVE); LEUKOCYTE ESTERASE,URINE NEGATIVE (NEGATIVE); NITRITE,URINE NEGATIVE (NEGATIVE); PROTEIN,URINE NEGATIVE (NEGATIVE); URINE SPECIFIC GRAVITY 1.018; UROBILINOGEN,URINE NEGATIVE mg/dL (<2.0)
--- NOTE | 2018-12-03 16:25 | RADIOLOGY REPORT (SQ) ---
EXAM DESCRIPTION: L SPINE WHOLE COMPLETED DATE/TIME: 12/03/2018 4:02 pm REASON FOR STUDY: back pain COMPARISON: None. NUMBER OF VIEWS: Five views including obliques. TECHNIQUE: AP, lateral, oblique, and sacral radiographic images acquired of the lumbar spine. LIMITATIONS: None. FINDINGS: MINERALIZATION: Normal. SEGMENTATION: Normal. No transitional anatomy. ALIGNMENT: Normal. VERTEBRAE: Maintained height. No fracture or worrisome bone lesion. DISCS: Minimal degenerative disc disease changes, no significant disc height loss. POSTERIOR ELEMENTS: Pedicles and facets are intact. No pars defect or posterior arch defects. Facet arthropathy is present. HARDWARE: None in the spine. PARASPINAL SOFT TISSUES: Normal. PELVIS: Intact as visualized. No fractures or worrisome bone lesions. SI joints intact. OTHER: No other significant finding. IMPRESSION: No significant findings. TECHNICAL DOCUMENTATION: JOB ID: [id number] [employer]- All Rights Reserved Reading location - IP/workstation name: [email or web address]
[2018-12-03] MEDS ORDERED: MORPHINE SULFATE 10 MG/ML INJ IM ONE (16:38)
--- NOTE | 2018-12-03 16:46 | ER Document Report ---
ED General Pain - General Chief Complaint: Flank Pain Stated Complaint: RIGHT LEG PAIN Time Seen by Provider: 12/03/18 14:47 Primary Care Provider: JOSÉ MIGUEL DECKER MD [Primary Care Provider] - Follow up tomorrow ANDREA ACOSTA PA-C [ALLIED HEALTH PROFESSIONAL] - Follow up tomorrow Notes: 48-year-old female patient emergency department chief complaint of right-sided back pain that radiates down into her buttocks and down the back of her leg. States that she does not know how it started hurting. Has been taking some allopurinol because she thought maybe it was gout. Not getting any better. No fever, chills, sweats. No dysuria. No vomiting. No chest pain. No shortness of breath. He is also complaining of some left ankle and foot swelling. States that she took some allopurinol and it has helped the swelling and the pain in her foot but it has not helped the pain in her back. TRAVEL OUTSIDE OF THE [place] IN LAST 30 DAYS: No - HPI Onset: Yesterday Onset/Duration: Gradual, Constant Quality of pain: Throbbing Severity: Moderate Pain Level: 4 Context: New onset Associated symptoms: None Exacerbated by: Movement - Related Data Allergies/Adverse Reactions: No Known Allergies Allergy (Verified 12/03/18 14:29) Past Medical History - General Information source: Patient - Social History Smoking Status: Never Smoker Chew tobacco use (# tins/day): No Frequency of alcohol use: None Drug Abuse: None Lives with: Family Family History: Reviewed & Not Pertinent Patient has suicidal ideation: No Patient has homicidal ideation: No - Past Medical History Cardiac Medical History: Reports: Hx Congestive Heart Failure, Hx Heart Attack - 2010 AND 2018, Hx Hypercholesterolemia, Hx Hypertension Pulmonary Medical History: Reports: Hx Asthma Denies: Hx Tuberculosis Neurological Medical History: Reports: Hx Seizures Endocrine Medical History: Reports: Hx Diabetes Mellitus Type 2 Renal/ Medical History: Reports: Hx Kidney Stones - L kidney disease. Denies: Hx Peritoneal Dialysis Past Surgical History: Reports: Hx Section - 2, Hx Cholecystectomy, Hx Tonsillectomy - 1992. Denies: Hx Pacemaker - Immunizations Hx Diphtheria, Pertussis, Tetanus Vaccination: Yes Hx Pneumococcal Vaccination: 01/03/12 Review of Systems - Review of Systems Notes: Constitutional: denies: Chills, Diaphoresis, Fever, Malaise, Weakness EENT: denies: Eye discharge, Blurred vision, Tearing, Double vision, Nose congestion, Nose discharge, Throat swelling, Mouth pain Cardiovascular: denies: Palpitations, Heart racing, Orthopnea, Dyspnea, Chest pain Respiratory: denies: Cough, Hurts to breathe, Wheezing, Shortness of breath Gastrointestinal: denies: Abdominal pain, Diarrhea, Nausea, Vomiting, Black stools, bright red blood in stool Genitourinary: denies: Burning, Dysuria, Discharge, Frequency, Flank pain, Hematuria Musculoskeletal: denies: Joint pain, +Joint swelling, +Muscle pain,+Muscle stiffness, +back pain Hematologic/Lymphatic: denies: Anemia, Easy bleeding, Easy bruising, Blood clots Neurological/Psychological: denies: Confusion, Dementia, Depression, Loss of consciousness Skin: No lesions, no masses, no skin breakdown, no abscesses Physical Exam - Vital signs Vitals: Temp Pulse Resp BP Pulse Ox 97.5 F 81 17 140/72 H 98 12/03/18 14:36 12/03/18 14:36 12/03/18 14:36 12/03/18 14:36 12/03/18 14:36 Interpretation: Normal - General General appearance: Appears well, Alert - HEENT Head: Normocephalic, Atraumatic Eyes: Normal Pupils: PERRL - Respiratory Respiratory status: No respiratory distress Chest status: Nontender Breath sounds: Normal Chest palpation: Normal - Cardiovascular Rhythm: Regular Heart sounds: Normal auscultation Murmur: No - Abdominal Inspection: Normal Distension: No distension Bowel sounds: Normal Tenderness: Nontender Organomegaly: No organomegaly - Back Back: Tender - Tenderness to palpation on the paraspinal muscles L-spine and in the buttock region as well as the hamstring area on the right. No asymmetrical swelling. Very tender to light touch. No obvious rash. - Extremities General upper extremity: Normal inspection, Nontender, Normal color, Normal ROM, Normal temperature. No: Edema General lower extremity: Normal inspection, Nontender, Normal color, Normal ROM, Normal temperature, Normal weight bearing. No: Edema, Maico's sign - Neurological Neuro grossly intact: Yes Cognition: Normal Orientation: AAOx4 Sixt[place] Coma Scale Eye Opening: Spontaneous [place] Coma Scale Verbal: Oriented [place] Coma Scale Motor: Obeys Commands [place] Coma Scale Total: 15 Speech: Normal Motor strength normal: LUE, RUE, LLE, RLE Sensory: Normal - Psychological Associated symptoms: Normal affect, Normal mood - Skin Skin Temperature: Warm Skin Moisture: Dry Skin Color: Normal Course - Re-evaluation Re-evalutation: 12/03/18 16:38 Patient is a very tender paraspinal muscles. The pain radiates through the gluteus down the right leg. There is no asymmetrical swelling. This appears to be musculoskeletal pain. Patient states that she took a muscle relaxant that did not help. Wants something "stronger for the pain". States that she has no shortness of breath or chest pain. No other major issues. No prior history of PE. I have given her a shot of Toradol and morphine here. I think that this is an adequate treatment at this time. She has an appointment she says in 2 days. If symptoms are getting worse then she should return. It is fairly unremarkable. Does not have a large amount of blood. No evidence of infection. nOn febrile. Not tachycardic. 12/03/18 16:41 12/03/18 18:08 Laboratory 12/03/18 12/03/18 12/03/18 15:20 15:20 15:20 WBC 7.3 RBC 4.40 Hgb 12.0 Hct 36.2 MCV 82 MCH 27.2 MCHC 33.1 RDW 14.4 H Plt Count 185 Seg Neutrophils % 52.8 Lymphocytes % 37.4 Monocytes % 7.7 Eosinophils % 1.4 Basophils % 0.7 Absolute Neutrophils 3.9 Absolute Lymphocytes 2.7 Absolute Monocytes 0.6 Absolute Eosinophils 0.1 Absolute Basophils 0.0 Sodium 134.6 L Potassium 4.1 Chloride 100 Carbon Dioxide 24 Anion Gap 11 BUN 21 H Creatinine 1.25 Est GFR ( Amer) 55 L Est GFR (Non-Af Amer) 45 L Glucose 325 H Calcium 9.8 Total Bilirubin 0.3 Direct Bilirubin 0.2 Neonat Total Bilirubin Not Reportable Neonat Direct Bilirubin Not Reportable Neonat Indirect Bili Not Reportable AST 39 H ALT 39 Alkaline Phosphatase 200 H Total Protein 7.5 Albumin 4.0 Urine Color YELLOW Urine Appearance SLIGHTLY-CLOUDY Urine pH 5.0 Ur Specific [place] 1.018 Urine Protein NEGATIVE Urine Glucose (UA) >=500 H Urine Ketones NEGATIVE Urine Blood SMALL H Urine Nitrite NEGATIVE Urine Bilirubin NEGATIVE Urine Urobilinogen NEGATIVE Ur Leukocyte Esterase NEGATIVE Urine WBC (Auto) 0 Urine RBC (Auto) 4 U Hyaline Cast (Auto) 10 Urine Bacteria (Auto) TRACE Squamous Epi Cells Auto 8 Urine Mucus (Auto) FEW Urine Ascorbic Acid NEGATIVE Lumbar Spine X-Ray 12/03/18 14:59 IMPRESSION: No significant findings. - Vital Signs Vital signs: Temp Pulse Resp BP Pulse Ox 98.4 F 89 20 119/60 98 12/03/18 16:57 12/03/18 16:57 12/03/18 16:57 12/03/18 16:57 12/03/18 16:57 - Laboratory Result Diagrams: 12/03/18 15:20 12/03/18 15:20 Laboratory results interpreted by me: 12/03/18 12/03/18 12/03/18 15:20 15:20 15:20 RDW 14.4 H Sodium 134.6 L BUN 21 H Est GFR ( Amer) 55 L Est GFR (Non-Af Amer) 45 L Glucose 325 H AST 39 H Alkaline Phosphatase 200 H Urine Glucose (UA) >=500 H Urine Blood SMALL H Discharge - Discharge Clinical Impression: Acute low back pain with sciatica Qualifiers: Back pain laterality: right Sciatica laterality: sciatica of right side Qualified Code(s): M54.41 - Lumbago with sciatica, right side Condition: Good Disposition: HOME, SELF-CARE Instructions: Low Back Pain ([facility]), Sciatica ([facility]) Prescriptions: Hydrocodone/Acetaminophen [[place] 5-325 mg Tablet] 1 tab PO Q6H PRN 5 Days #20 tablet PRN Reason: Meloxicam [Mobic] 7.5 mg PO DAILY 7 Days #7 tablet Referrals: ANDREA ACOSTA PA-C [ALLIED HEALTH PROFESSIONAL] - Follow up tomorrow JOSÉ MIGUEL DECKER MD [Primary Care Provider] - Follow up tomorrow
[2018-12-03 17:10] VITALS: BP 119/60
== END 2018-12-03 17:17 | disposition home or self-care (01) ==
LOC: ER 14:06
DX: M54.41 Lumbago with sciatica, right side (principal); M79.89 Other specified soft tissue disorders; I10 Essential (primary) hypertension; E11.9 Type 2 diabetes mellitus without complications
CPT/HCPCS: 99284; 96372; 36415; 85025; 80053; 81001; 72110; J2270

== ENCOUNTER → 2019-01-27 | Outpatient (CLI) | payer BC ==
[2019-01-27 16:46] LABS: HEMATOCRIT 35.1 % (36.0-47.0); HEMOGLOBIN 11.8 g/dL (12.0-15.5); MEAN CORPUSCULAR HEMOGLOBIN 27.4 pg (27.0-33.4); MEAN CORPUSCULAR HGB CONC 33.6 g/dL (32.0-36.0); MEAN CORPUSCULAR VOLUME 82 fl (80-97); PLATELET COUNT 203 10^3/uL (150-450); RED CELL DISTRIBUTION WIDTH 14.2 % (11.5-14.0); WHITE BLOOD COUNT 6.8 10^3/uL (4.0-10.5)
[2019-01-27 17:08] LABS: ANION GAP 11 (5-19); BLOOD UREA NITROGEN 15 mg/dL (7-20); CALCIUM 10.1 mg/dL (8.4-10.2); CARBON DIOXIDE 28 mmol/L (22-30); CHLORIDE 97 mmol/L (98-107); GLUCOSE 265 mg/dL (75-110); POTASSIUM 3.8 mmol/L (3.6-5.0)
[2019-01-27 17:15] LABS: URINE CREATININE 273.7 mg/dL (15-278); URINE PROTEIN 5.6 mg/dL (<12)
[2019-01-27 17:27] LABS: APPEARANCE,URINE CLEAR; BILIRUBIN,URINE NEGATIVE (NEGATIVE); COLOR,URINE DARK YELLOW; GLUCOSE, URINE NEGATIVE (NEGATIVE); KETONES,URINE NEGATIVE (NEGATIVE); PROTEIN,URINE NEGATIVE (NEGATIVE)
[2019-01-27 17:28] LABS: LEUKOCYTE ESTERASE,URINE NEGATIVE (NEGATIVE); NITRITE,URINE NEGATIVE (NEGATIVE)
== END ==
LOC: OD 16:01
PROVIDERS: ATTEND Physician Assistant Medical
DX: E11.22 Type 2 diabetes mellitus with diabetic chronic kidney disease (principal); I12.9 Hypertensive chronic kidney disease with stage 1 through stage 4 chronic kidney disease, or unspecified chronic kidney disease; N18.2 Chronic kidney disease, stage 2 (mild); R80.9 Proteinuria, unspecified; M10.00 Idiopathic gout, unspecified site
CPT/HCPCS: 36415; 80048; 81001; 82570; 84156; 85027

== ENCOUNTER 2019-07-01 12:55 | Observation (INO) | payer SELFPAY ==
[2019-07-01] MEDS ORDERED: ASPIRIN 81 MG TABLET, CHEWABLE PO ONE (13:41)
--- NOTE | 2019-07-01 13:44 | ER Document Report ---
ED Medical Screen (RME) - General Chief Complaint: Chest Pain Stated Complaint: CHEST PAIN/LOW BLOOD PRESSURE Time Seen by Provider: 07/01/19 13:34 Primary Care Provider: ANDREA ACOSTA PA-C [Primary Care Provider] - Follow up as needed TRAVEL OUTSIDE OF THE [place] IN LAST 30 DAYS: No - HPI Notes: 07/01/19 13:41 48-year-old female with a medical history of type 2 diabetes, hyper cholesterolemia, sleep apnea, acid reflux, to [facility] presents emergency room with complaints of chest pain for the last 2 days, where she is taken nitro without relief, periumbilical pain that started last night, blurred vision, headache, vomiting the last 2 days. 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 Patient did not get the flu shot this year. Patient's last MO was July 2018, denies having stents placed. Patient did take a baby aspirin today. Denies any fevers or chills. Accu-Chek was 112 for her blood sugar I have greeted and performed a rapid initial assessment of this patient. A comprehensive ED assessment and evaluation of the patient, analysis of test results and completion of the medical decision making process will be conducted by additional ED providers. PHYSICAL EXAMINATION: GENERAL: Well-appearing, well-nourished and in mild distress HEAD: Atraumatic, normocephalic. EYES: Pupils equal round extraocular movements intact, conjunctiva are normal. CV: Sinus tachycardia S1, s2 regular LUNGS: No respiratory distress Musculoskeletal: Normal range of motion NEUROLOGICAL: Normal speech, normal gait. SKIN: Warm, Dry, normal turgor, no rashes or lesions noted. 07/01/19 13:42 - Related Data Allergies/Adverse Reactions: No Known Allergies Allergy (Verified 07/01/19 13:26) Home Medications: metoprolol, lisinopril/hctxz, isosorbide mono, allopurinol, atorvastatin, clonidine, *insulins* Past Medical History - Past Medical History Cardiac Medical History: Reports: Hx Congestive Heart Failure, Hx Heart Attack - 2010 AND 2018, Hx Hypercholesterolemia, Hx Hypertension Pulmonary Medical History: Reports: Hx Asthma Denies: Hx Tuberculosis Neurological Medical History: Reports: Hx Seizures Endocrine Medical History: Reports: Hx Diabetes Mellitus Type 2 Renal/ Medical History: Reports: Hx Kidney Stones - L kidney disease. Denies: Hx Peritoneal Dialysis Past Surgical History: Reports: Hx Section - 2, Hx Cholecystectomy, Hx Tonsillectomy - 1992. Denies: Hx Pacemaker - Immunizations Hx Diphtheria, Pertussis, Tetanus Vaccination: Yes Physical Exam - Vital signs Vitals: Temp Pulse Resp BP Pulse Ox 98.6 F 112 H 18 191/103 H 97 07/01/19 13:16 07/01/19 13:16 07/01/19 13:16 07/01/19 13:16 07/01/19 13:16 Course - Vital Signs Vital signs: Temp Pulse Resp BP Pulse Ox 98.6 F 112 H 18 191/103 H 97 07/01/19 13:16 07/01/19 13:16 07/01/19 13:16 07/01/19 13:16 07/01/19 13:16 Doctor's Discharge - Discharge Referrals: ANDREA ACOSTA PA-C [Primary Care Provider] - Follow up as needed
[2019-07-01 14:21] LABS: ABSOLUTE BASOPHILS # (AUTO) 0.1 10^3/uL (0.0-0.2); ABSOLUTE EOSINOPHILS # (AUTO) 0.1 10^3/uL (0.0-0.6); ABSOLUTE LYMPHOCYTES (AUTO) 3.4 10^3/uL (0.5-4.7); ABSOLUTE NEUT (AUTO) 5.7 10^3/uL (1.7-8.2); EOSINOPHILS % (AUTO) 0.8 % (0-6); HEMATOCRIT 38.8 % (36.0-47.0); HEMOGLOBIN 13.6 g/dL (12.0-15.5); LYMPHOCYTES % (AUTO) 32.7 % (13-45); MEAN CORPUSCULAR HEMOGLOBIN 29.1 pg (27.0-33.4); MEAN CORPUSCULAR VOLUME 83 fl (80-97); MONOCYTES % (AUTO) 9.7 % (3-13); PLATELET COUNT 294 10^3/uL (150-450); RED BLOOD COUNT 4.66 10^6/uL (3.72-5.28); RED CELL DISTRIBUTION WIDTH 14.3 % (11.5-14.0); SEGMENTED NEUTROPHILS % (AUTO) 55.8 % (42-78); TOTAL CELLS COUNTED % (AUTO) 100 %; WHITE BLOOD COUNT 10.3 10^3/uL (4.0-10.5)
[2019-07-01 14:30] LABS: A TYPE INFLUENZA AG NEGATIVE (NEGATIVE); B INFLUENZA AG NEGATIVE (NEGATIVE)
--- NOTE | 2019-07-01 14:38 | ER Document Report ---
ED General - General Chief Complaint: Chest Pain Stated Complaint: CHEST PAIN/LOW BLOOD PRESSURE Time Seen by Provider: 07/01/19 13:34 Primary Care Provider: ANDREA ACOSTA PA-C [ALLIED HEALTH PROFESSIONAL] - Follow up as needed Mode of Arrival: Ambulatory TRAVEL OUTSIDE OF THE [place] IN LAST 30 DAYS: No - HPI Onset: Other - over the last 2 days Onset/Duration: Gradual Quality of pain: Sharp Severity: Moderate Pain Level: 2 Associated symptoms: Shortness of breath Exacerbated by: Denies Relieved by: Denies Similar symptoms previously: Yes - patient has chest pain about 2 times week Recently seen / treated by doctor: No Notes: 48 year old female with a history of CAD (she reports has had 2 MIs), CHF, DM, HTN, HLD, Seizures here for off and on chest pain for the last 2 days. The patient has also had some off and on numbness and tingling and she has just not felt her normal self. The patient apparently had some recent diabetes medication changes. The patient says she had a stress test and a cardiac cath in the last year or so which were unremarkable. - Related Data Allergies/Adverse Reactions: No Known Allergies Allergy (Verified 07/01/19 13:26) Home Medications: metoprolol, lisinopril/hctxz, isosorbide mono, allopurinol, atorvastatin, clonidine, tresiba, ozempic Past Medical History - General Information source: Patient - Social History Smoking Status: Never Smoker Chew tobacco use (# tins/day): No Frequency of alcohol use: None Drug Abuse: None Lives with: Family Family History: Reviewed & Not Pertinent Patient has suicidal ideation: No Patient has homicidal ideation: No - Past Medical History Cardiac Medical History: Reports: Hx Congestive Heart Failure, Hx Heart Attack - 2010 AND 2018, Hx Hypercholesterolemia, Hx Hypertension Pulmonary Medical History: Reports: Hx Asthma Denies: Hx Tuberculosis Neurological Medical History: Reports: Hx Seizures Endocrine Medical History: Reports: Hx Diabetes Mellitus Type 2 Renal/ Medical History: Reports: Hx Kidney Stones - L kidney disease. Denies: Hx Peritoneal Dialysis Past Surgical History: Reports: Hx Section - 2, Hx Cholecystectomy, Hx Tonsillectomy - 1992. Denies: Hx Pacemaker - Immunizations Hx Diphtheria, Pertussis, Tetanus Vaccination: Yes Hx Pneumococcal Vaccination: 01/03/12 Review of Systems - Review of Systems Constitutional: No symptoms reported EENT: No symptoms reported Cardiovascular: Chest pain Respiratory: Short of breath Gastrointestinal: No symptoms reported Genitourinary: No symptoms reported Female Genitourinary: No symptoms reported Musculoskeletal: No symptoms reported Skin: No symptoms reported Hematologic/Lymphatic: No symptoms reported Neurological/Psychological: Numbness, Tingling -: Yes All other systems reviewed and negative Physical Exam - Vital signs Vitals: Temp Pulse Resp BP Pulse Ox 98.6 F 112 H 18 191/103 H 97 07/01/19 13:16 07/01/19 13:16 07/01/19 13:16 07/01/19 13:16 07/01/19 13:16 - Notes Notes: GENERAL: Well-appearing, well-nourished and in no acute distress. HEAD: Atraumatic, normocephalic. EYES: Pupils equal round and reactive to light, extraocular movements intact, sclera anicteric, conjunctiva are normal. ENT: Nares patent, oropharynx clear without exudates. Moist mucous membranes. NECK: Normal range of motion, supple without lymphadenopathy or JVD. LUNGS: Breath sounds clear to auscultation bilaterally and equal. No wheezes rales or rhonchi. HEART: Regular rate and rhythm without murmurs, rubs or gallops. ABDOMEN: Soft, nontender, normoactive bowel sounds. No guarding, no rebound. No masses appreciated. EXTREMITIES: Normal range of motion, no pitting or edema. No clubbing or cyanosis. NEUROLOGICAL: Cranial nerves II through XII grossly intact. Normal speech, normal gait. PSYCH: Normal mood, normal affect. SKIN: Warm, Dry, normal turgor, no rashes or lesions noted. Course - Re-evaluation Re-evalutation: 07/01/19 16:24 The patient is here for off and on chest pains which do not sound typical for ACS. The patient has had a stress test and a cath in the last 2 years which were unremarkable. I spoke with the patient's Mixer Attendant and he recommends getting two Troponins to ensure no large rise since she has a chronically elevated Troponin and he recommends outpatient follow up with him this week. 07/01/19 16:35 The patient has been having numbness and tingling in her hands and feet as of late. Patient's electrolytes are unremarkable. It seems likely she is developing Diabetic Neuropathy. Will start patient on low dose Gabapentin and have her follow up with her PCP for further treatment and management. 07/01/19 18:00 Patient does not have a UTI. - Vital Signs Vital signs: Temp Pulse Resp BP Pulse Ox 98.1 F 112 H 13 187/96 H 100 07/01/19 16:03 07/01/19 13:16 07/01/19 15:01 07/01/19 15:01 07/01/19 15:01 - Laboratory Result Diagrams: 07/01/19 14:01 07/01/19 14:01 Laboratory results interpreted by me: 07/01/19 07/01/19 07/01/19 13:40 14:01 14:01 RDW 14.3 H Est GFR (MDRD) Non-Af 58 L Glucose 116 H POC Glucose 112 H AST 53 H ALT 47 H Alkaline Phosphatase 230 H Creatine Kinase 184 H NT-Pro-B Natriuret Pep Total Protein 8.4 H Urine Protein Urine Blood Urine Ascorbic Acid 07/01/19 07/01/19 16:47 16:47 RDW Est GFR (MDRD) Non-Af Glucose POC Glucose AST ALT Alkaline Phosphatase Creatine Kinase NT-Pro-B Natriuret Pep 197 H Total Protein Urine Protein 30 H Urine Blood MODERATE H Urine Ascorbic Acid 20 H - Diagnostic Test Radiology reviewed: Image reviewed, Reports reviewed - EKG Interpretation by In EKG shows normal: Sinus rhythm, [place], QRS Complexes Rate: Normal Additional EKG results interpreted by me: 07/01/19 15:10 prolonged QT Discharge - Discharge Clinical Impression: Chest pain Qualifiers: Chest pain type: unspecified Qualified Code(s): R07.9 - Chest pain, unspecified Diabetic neuropathy Qualifiers: Diabetes mellitus type: type 2 Diabetes mellitus complication detail: with other neurological complication Qualified Code(s): E11.49 - Type 2 diabetes mellitus with other diabetic neurological complication Condition: Stable Disposition: HOME, SELF-CARE Instructions: Chest Pain of Unclear Cause ([facility]), Neuropathy ([facility]) Additional Instructions: Follow up with your primary care doctor for your likely Diabetic Neuropathy. Try Gabapentin for the numbness and tingling in your hands and feet. Follow up with your Mixer Attendant Dr. Thomas this week by calling him on his cell phone tomorrow at . You had blood work in the ER, an EKG, a chest Xray. Prescriptions: Gabapentin [Neurontin 300 mg Capsule] 300 mg PO Q8 #30 cap Referrals: ANDREA ACOSTA PA-C [ALLIED HEALTH PROFESSIONAL] - Follow up as needed
[2019-07-01 14:43] LABS: ALBUMIN 4.4 g/dL (3.5-5.0); ALKALINE PHOSPHATASE 230 U/L (38-126); ANION GAP 10 (5-19); ASPARTATE AMINO TRANSFERASE 53 U/L (14-36); BILIRUBIN,DIRECT 0.1 mg/dL (0.0-0.4); BILIRUBIN,TOTAL 0.5 mg/dL (0.2-1.3); BLOOD UREA NITROGEN 15 mg/dL (7-20); CARBON DIOXIDE 27 mmol/L (22-30); CHLORIDE 104 mmol/L (98-107); CREATINE KINASE 184 U/L (30-135); GLUCOSE 116 mg/dL (75-110); POTASSIUM 3.7 mmol/L (3.6-5.0); TOTAL PROTEIN 8.4 g/dL (6.3-8.2)
[2019-07-01 14:55] LABS: CREATINE KINASE MB 1.21 ng/mL (<4.55); TROPONIN I 0.032 ng/mL
--- NOTE | 2019-07-01 15:27 | RADIOLOGY REPORT (SQ) ---
EXAM DESCRIPTION: CHEST SINGLE VIEW COMPLETED DATE/TIME: 07/01/2019 2:54 pm REASON FOR STUDY: CP COMPARISON: 04/03/2018 EXAM PARAMETERS: NUMBER OF VIEWS: One view. TECHNIQUE: Single frontal radiographic view of the chest acquired. RADIATION DOSE: NA LIMITATIONS: None. FINDINGS: LUNGS AND PLEURA: No opacities, masses or pneumothorax. No pleural effusion. MEDIASTINUM AND HILAR STRUCTURES: No masses. Contour normal. HEART AND VASCULAR STRUCTURES: Heart normal in size. Normal vasculature. BONES: No acute findings. HARDWARE: None in the chest. OTHER: No other significant finding. IMPRESSION: NO ACUTE RADIOGRAPHIC FINDING IN THE CHEST. TECHNICAL DOCUMENTATION: JOB ID: [id number] 2010 [employer]- All Rights Reserved Reading location - IP/workstation name: [email or web address]
[2019-07-01 17:24] LABS: APPEARANCE,URINE SLIGHTLY-CLOUDY; BILIRUBIN,URINE NEGATIVE (NEGATIVE); COLOR,URINE YELLOW; GLUCOSE, URINE NEGATIVE (NEGATIVE); KETONES,URINE NEGATIVE (NEGATIVE); LEUKOCYTE ESTERASE,URINE NEGATIVE (NEGATIVE); NITRITE,URINE NEGATIVE (NEGATIVE); PROTEIN,URINE 30 mg/dL (NEGATIVE); URINE SPECIFIC GRAVITY 1.017; UROBILINOGEN,URINE NEGATIVE mg/dL (<2.0)
[2019-07-01 17:44] LABS: TROPONIN I 0.037 ng/mL
[2019-07-01] MEDS ORDERED: LABETALOL HCL INJ 20 MG/4 ML DISP.SYRIN IV ONE (18:11)
--- NOTE | 2019-07-01 18:46 | EKG REPORT ---
SEVERITY:- ABNORMAL ECG - SINUS TACHYCARDIA PROBABLE LEFT ATRIAL ABNORMALITY NONSPECIFIC T ABNORMALITIES, LATERAL LEADS BORDERLINE PROLONGED QT INTERVAL : Confirmed by: Zeke Tariq 01-Jul-2019 18:46:14
[2019-07-01] MEDS ORDERED: HYDRALAZINE HCL INJ/PF 20 MG/1 ML SDV IV ONE ×2 (18:53→19:36)
[2019-07-01] MEDS ORDERED: LORAZEPAM INJ 2 MG/1 ML VIAL IV ONE (20:02)
[2019-07-01] MEDS ORDERED: METOPROLOL TARTRATE PF/INJ 5 MG/5 ML SDV IV ONE (20:02)
[2019-07-01] MEDS ORDERED: PROMETHAZINE HCL INJ 25 MG/1 ML VIAL IV ONE (21:18)
[2019-07-01] MEDS ORDERED: LEVALBUTEROL HCL NEB 0.63 MG/3 ML AMPUL NEB PRN (22:15)
[2019-07-01] MEDS ORDERED: MAG HYDROX/AL HYDROX/SIMETH SUSP 30 ML UDCUP PO PRN (22:15)
[2019-07-01] MEDS ORDERED: PROMETHAZINE HCL INJ 25 MG/1 ML VIAL IV PRN (22:15)
[2019-07-01] MEDS ORDERED: MAGNESIUM HYDROXIDE SUSP 30 ML UDCUP PO PRN (22:15)
[2019-07-01] MEDS ORDERED: ACETAMINOPHEN 325 MG TABLET PO PRN (22:20)
[2019-07-01] MEDS ORDERED: MORPHINE SULFATE 10 MG/ML INJ IV PRN ×3 (22:20)
[2019-07-01] MEDS ORDERED: DEXTROSE 40% GEL 15 GM TUBE PO PRN ×2 (22:20)
[2019-07-01] MEDS ORDERED: GLUCAGON,HUMAN RECOMB 1 MG INJ IM PRN (22:20)
[2019-07-01] MEDS ORDERED: DEXTROSE 50%-WATER 25 GM/50 ML DISP.SYRIN IV PRN ×2 (22:20)
[2019-07-01] MEDS ORDERED: GUAIFENESIN SYRP 200 MG/10 ML UDC PO PRN (22:20)
[2019-07-01] MEDS ORDERED: IBUPROFEN 800 MG TABLET PO PRN (22:20)
[2019-07-01] MEDS ORDERED: CLONAZEPAM 1 MG TABLET PO PRN (22:21)
[2019-07-01] MEDS ORDERED: DIAZEPAM INJ 10 MG/2 ML DISP.SYRIN IV PRN (22:21)
[2019-07-01] MEDS ORDERED: NICOTINE 21 MG/24 HR PATCH.TD24 TD PRN (23:04)
[2019-07-01] MEDS ORDERED: FAMOTIDINE 20 MG TABLET PO ONE (23:15)
[2019-07-01] MEDS ORDERED: METOPROLOL SUCCINATE 50 MG TAB.SR.24H PO ONE (23:15)
[2019-07-01 23:38] LABS: CREATINE KINASE MB 1.39 ng/mL (<4.55); TROPONIN I 0.043 ng/mL
[2019-07-02] MEDS ORDERED: INFLUENZA QUAD (6MOS+) 2019-20 VAC 0.5 ML SYR IM ONE (01:00)
[2019-07-02] MEDS ORDERED: METOPROLOL TARTRATE 100 MG TABLET PO ONE (01:00)
--- NOTE | 2019-07-02 01:25 | PDOC H&P ---
History of Present Illness Admission Date/PCP: 07/01/2019 21:51 JOSÉ MIGUEL DECKER MD Patient complains of: Chest pain History of Present Illness: ARMIDA MAYS is a 48 year old female who presented to the emergency room with a 2-day history of chest pain. Patient admits a gradually developing sharp left anterior chest pain associated with vague numbness and tingling discomfort generalized in her upper extremities bilaterally and accompanied by mild dyspnea worsened with exertion over the last 2 days. She admits that the pain has been constantly present, of moderate severity and not totally relieved by sublingual nitroglycerin. She additionally complains of periumbilical pain, vomiting, headache and blurred vision, all symptoms also present over the last 2 days since her insulin dose was changed by her slip mixer last week. She denies other associated or accompanying signs and symptoms. She admits numerous prior similar episodes having the same pain at least 2 times a week for the last year. Denies identification of any additional aggravating or ameliorating factors for her chest pain. In the emergency room she was found to have normal cardiac enzymes and an EKG that showed no evidence of acute cardiac ischemia or myocardial injury. It was also determined that she had cardiac stress test and a cardiac cath within the last year, however she was noted to have very poorly controlled hypertension with initial blood pressure of 220/110 and a tachycardia in the 100-140 range. Patient did not respond well to treatments with IV hydralazine causing an increase in her heart rate though her blood pressure did come into better control. Because of her poorly controlled blood pressure and tachycardia she is being admitted observation status for further evaluation and treatment. Past Medical History Cardiac Medical History: Reports: Congestive Heart Failure, Coronary Artery Disease, Myocardial Infarction - 2010 AND 2018, Hyperlipidema, Hypertension Denies: Atrial Fibrillation, Peripheral Vascular Disease Pulmonary Medical History: Reports: Asthma, Sleep Apnea Denies: Chronic Obstructive Pulmonary Disease (COPD), Tuberculosis EENT Medical History: Denies: Cataracts, Ears - Hearing aids Neurological Medical History: Reports: Seizures, Other - Diabetic peripheral neuropathy Denies: Hemorrhagic CVA, Ischemic CVA Endocrine Medical History: Reports: Diabetes Mellitus Type 2, Obesity Denies: Diabetes Mellitus Type 1, Hyperthyroidism, Hypothyroidism Renal/ Medical History: Denies: Chronic Kidney Disease, Nephrolithiasis Malignancy Medical History: Reports: None GI Medical History: Reports: Gastroesophageal Reflux Disease Denies: Cirrhosis, Crohn's Disease, Hepatitis, Ulcerative Colitis Musculoskeltal Medical History: Denies: Arthritis, Fibromyalgia, Gout Skin Medical History: Denies: Eczema, Psoriasis Psychiatric Medical History: Reports: Depression, General Anxiety Disorder, Tobacco Dependency, Other - Insomnia Denies: Alcohol Dependency, Substance Abuse Traumatic Medical History: Reports: None Hematology: Denies: Anemia, Bleeding Tendencies Infectious Medical History: Reports: None Past Surgical History Past Surgical History: Reports: Section - X 2, Cholecystectomy, Tonsillectomy - 1992 Social History Information Source: Patient Lives with: Family Smoking Status: Former Smoker Electronic Cigarette use?: No Frequency of Alcohol Use: None Hx Recreational Drug Use: No Drugs: None Hx Prescription Drug Abuse: No - Advance Directive Resuscitation Status: Full Code Surrogate healthcare decision maker:: Emmanuel Mays Family History Family History: CAD, DM, Hypertension. denies: Malignancy Parental Family History Reviewed: Yes Children Family History Reviewed: No Sibling(s) Family History Reviewed.: Yes Medication/Allergy Home Medications: Gabapentin [Neurontin 300 mg Capsule] 300 mg PO Q8 #30 cap 07/01/19 Allergies/Adverse Reactions: No Known Allergies Allergy (Verified 07/01/19 13:26) Review of Systems Constitutional: ABSENT: chills, fever(s) Eyes: PRESENT: as per HPI, visual disturbances - Blurry vision. ABSENT: other - Eye pain Ears: ABSENT: hearing changes, other - Ear pain Nose, Mouth, and Throat: PRESENT: as per HPI, headache(s). ABSENT: mouth pain, sore throat Cardiovascular: PRESENT: as per HPI, chest pain, dyspnea on exertion. ABSENT: edema, orthropnea, palpitations Respiratory: PRESENT: as per HPI, dyspnea. ABSENT: cough, hemoptysis Gastrointestinal: PRESENT: abdominal pain - Periumbilical pains, vomiting. A BSENT: constipation, diarrhea, nausea Genitourinary: ABSENT: difficulty urinating, dysuria, hematuria Musculoskeletal: ABSENT: back pain, joint swelling, muscle weakness Integumentary: ABSENT: pruritus, rash Neurological: ABSENT: confusion, convulsions, focal weakness, memory loss, syncope Psychiatric: ABSENT: anxiety, depression Endocrine: ABSENT: cold intolerance, heat intolerance, polydipsia, polyphagia, polyuria Hematologic/Lymphatic: ABSENT: easy bleeding, easy bruising Allergic/Immunologic: ABSENT: seasonal rhinorrhea Physical Exam Vital Signs: Temp Pulse Resp BP Pulse Ox 98.1 F 112 H 13 149/87 H 99 07/01/19 16:03 07/01/19 13:16 07/01/19 21:01 07/01/19 20:55 07/01/19 21:01 Intake & Output 06/29/19 06/30/19 07/01/19 23:59 23:59 23:59 Weight 122.6 kg General appearance: PRESENT: no acute distress, cooperative, morbidly obese Head exam: PRESENT: atraumatic, normocephalic Eye exam: PRESENT: conjunctiva pink. ABSENT: conjunctival injection, scleral icterus Ear exam: PRESENT: normal external ear exam. ABSENT: bleeding, drainage Mouth exam: PRESENT: dry mucosa, neck supple Neck exam: ABSENT: thyromegaly, tracheal deviation Respiratory exam: PRESENT: clear to auscultation helio, symmetrical, unlabored Cardiovascular exam: PRESENT: RRR, tachycardia. ABSENT: clicks, gallop, rubs Pulses: PRESENT: normal radial pulses, normal dorsalis pedis pul Vascular exam: PRESENT: normal capillary refill. ABSENT: pallor GI/Abdominal exam: PRESENT: normal bowel sounds, soft. ABSENT: tenderness Rectal exam: PRESENT: deferred Extremities exam: ABSENT: joint swelling, pedal edema Musculoskeletal exam: ABSENT: deformity, dislocation Neurological exam: PRESENT: alert, oriented to person, oriented to place, oriented to time, oriented to situation, CN II-XII grossly intact. ABSENT: motor sensory deficit Psychiatric exam: PRESENT: anxious, normal mood Skin exam: PRESENT: dry, intact, warm. ABSENT: jaundice, rash, urticaria Results Laboratory Results: 07/01/19 14:01 07/01/19 14:01 07/01/19 07/01/19 07/01/19 14:01 14:01 14:01 WBC 10.3 RBC 4.66 Hgb 13.6 Hct 38.8 MCV 83 MCH 29.1 MCHC 35.0 RDW 14.3 H Plt Count 294 Seg Neutrophils % 55.8 Sodium 141.3 Potassium 3.7 Chloride 104 Carbon Dioxide 27 Anion Gap 10 BUN 15 Creatinine 1.01 Est GFR ( Amer) > 60 Glucose 116 H Calcium 10.0 Magnesium Total Bilirubin 0.5 AST 53 H Alkaline Phosphatase 230 H Total Protein 8.4 H Albumin 4.4 TSH 0.48 Urine Color Urine Appearance Urine pH Ur Specific [place] Urine Protein Urine Glucose (UA) Urine Ketones Urine Blood Urine Nitrite Ur Leukocyte Esterase Urine WBC (Auto) Urine RBC (Auto) 07/01/19 07/01/19 14:01 16:47 WBC RBC Hgb Hct MCV MCH MCHC RDW Plt Count Seg Neutrophils % Sodium Potassium Chloride Carbon Dioxide Anion Gap BUN Creatinine Est GFR ( Amer) Glucose Calcium Magnesium 2.2 Total Bilirubin AST Alkaline Phosphatase Total Protein Albumin TSH Urine Color YELLOW Urine Appearance SLIGHTLY-CLOUDY Urine pH 5.0 Ur Specific [place] 1.017 Urine Protein 30 H Urine Glucose (UA) NEGATIVE Urine Ketones NEGATIVE Urine Blood MODERATE H Urine Nitrite NEGATIVE Ur Leukocyte Esterase NEGATIVE Urine WBC (Auto) 1 Urine RBC (Auto) 16 07/01/19 07/01/19 07/01/19 14:01 14:01 16:47 Creatine Kinase 184 H CK-MB (CK-2) 1.21 Troponin I 0.032 0.037 NT-Pro-B Natriuret Pep 197 H Impressions: Chest X-Ray 07/01/19 13:40 IMPRESSION: NO ACUTE RADIOGRAPHIC FINDING IN THE CHEST. Assessment and Plan - Diagnosis (1) Hypertensive urgency Is this a current diagnosis for this admission?: Yes (2) Atypical chest pain Is this a current diagnosis for this admission?: Yes (3) Generalized anxiety disorder Is this a current diagnosis for this admission?: Yes (4) Obstructive sleep apnea Is this a current diagnosis for this admission?: Yes (5) Diabetes mellitus type 2 in obese Is this a current diagnosis for this admission?: Yes (6) Diabetic neuropathy Qualifiers: Diabetes mellitus type: type 2 Diabetes mellitus complication detail: with other neurological complication Qualified Code(s): E11.49 - Type 2 diabetes mellitus with other diabetic neurological complication Is this a current diagnosis for this admission?: Yes (7) Hyperlipidemia, unspecified Is this a current diagnosis for this admission?: Yes (8) Coronary artery disease Is this a current diagnosis for this admission?: Yes (9) GERD (gastroesophageal reflux disease) Is this a current diagnosis for this admission?: Yes (10) Morbid obesity Is this a current diagnosis for this admission?: Yes (11) Insomnia Qualifiers: Insomnia type: unspecified Qualified Code(s): G47.00 - Insomnia, unspecified Is this a current diagnosis for this admission?: Yes - Plan Summary Summary: Patient is admitted observation status in a telemetry bed on the medical floor. She received usual supportive and symptomatic cares. Serial cardiac enzymes will be obtained. Patient's blood pressure control will be established with agents not prone to causing tachycardia specifically she will be treated with beta-blockers utilizing metoprolol succinate. Her usual home medications will be continued as appropriate with changes mentioned previously, once a verified and reconciled medication list is available. She will receive morphine sulfate 2 to 4 mg IV every 2 hours as needed for control of chest pain. She will receive Valium 10 mg IV every 4 hours as needed for extreme anxiety. She will be started on oral clonazepam 0.5 mg twice daily for her generalized anxiety disorder. Cardiology consultation will be obtained if needed. Before meals and at bedtime Accu-Cheks to be performed with sliding scale insulin provided for hyperglycemia and a hypoglycemic protocol in place. A registered dietitian consultation will be obtained in regard to her diabetes and obesity. - Time Time Spent with patient: 25-34 minutes Medications reviewed and adjusted accordingly: Yes Anticipated discharge: Home Within: within 24 hours - Inpatient Certification Based on my medical assessment, after consideration of the patient's comorbidities, presenting symptoms, or acuity I expect that the services needed warrant INPATIENT care.: No I certify that my determination is in accordance with my understanding of Medicare's requirements for reasonable and necessary INPATIENT services [42 CFR 412.3e].: No Medical Necessity: Need Close Monitoring Due to Risk of Patient Decompensation, Need For Continuous Telemetry Monitoring
[2019-07-02 04:57] LABS: HEMATOCRIT 39.2 % (36.0-47.0); HEMOGLOBIN 13.1 g/dL (12.0-15.5); MEAN CORPUSCULAR HGB CONC 33.5 g/dL (32.0-36.0); MEAN CORPUSCULAR VOLUME 84 fl (80-97); PLATELET COUNT 300 10^3/uL (150-450); RED BLOOD COUNT 4.68 10^6/uL (3.72-5.28); RED CELL DISTRIBUTION WIDTH 14.7 % (11.5-14.0); WHITE BLOOD COUNT 12.1 10^3/uL (4.0-10.5)
[2019-07-02 05:20] LABS: ANION GAP 13 (5-19); BLOOD UREA NITROGEN 13 mg/dL (7-20); CARBON DIOXIDE 27 mmol/L (22-30); CHLORIDE 104 mmol/L (98-107); CHOLESTEROL 151.56 mg/dL (0-200); CREATINE KINASE 200 U/L (30-135); GLUCOSE 133 mg/dL (75-110); POTASSIUM 3.4 mmol/L (3.6-5.0); TRIGLYCERIDES 68 mg/dL (<150)
[2019-07-02 05:23] LABS: CREATINE KINASE MB 1.54 ng/mL (<4.55); TROPONIN I 0.051 ng/mL
[2019-07-02 05:30] LABS: DIRECT LDL 83 mg/dL (<100)
[2019-07-02] MEDS: HEPARIN SOD (PORCINE) 5,000 UNIT/ML 1 ML VIAL SUBCUT SCH ×2 (05:53→14:32)
[2019-07-02] MEDS: INSULIN REG, HUMAN 100 UNIT/ML 3 ML VIAL (PYX) SUBCUT SCH ×3 (09:07→18:10)
[2019-07-02] MEDS: DOCUSATE SODIUM 100 MG CAPSULE PO SCH ×2 (09:09→18:10)
[2019-07-02] MEDS ORDERED: METOPROLOL SUCCINATE 50 MG TAB.SR.24H PO SCH ×2 (10:00)
[2019-07-02] MEDS ORDERED: FAMOTIDINE 20 MG TABLET PO SCH (10:00)
--- NOTE | 2019-07-02 10:35 | PDOC PROGRESS REPORT ---
Subjective Progress Note for:: 07/02/19 Subjective:: Numbness and tingling have resolved. The patient states that she has no symptoms that caused her to report to the emergency department yesterday. She does relay that she had some chest discomfort several days ago. She took sublingual nitroglycerin. Her blood pressure dropped and therefore she did not take her clonidine for the next 2 days. This likely caused her blood pressure to spike. Dr. Frank Yao has been working with her on her blood pressure. Reason For Visit: HYPERTENSION,TACHYCARDIA,ATYPICAL CHEST PAIN Physical Exam Vital Signs: Temp Pulse Resp BP Pulse Ox 98.6 F 103 H 18 197/102 H 100 07/02/19 08:15 07/02/19 08:15 07/02/19 08:15 07/02/19 08:15 07/02/19 08:15 Intake & Output 07/01/19 07/02/19 07/03/19 06:59 06:59 06:59 Intake Total 260 Output Total 0 Balance 260 Weight 122.5 kg General appearance: PRESENT: no acute distress, cooperative, morbidly obese, well-developed Head exam: PRESENT: atraumatic, normocephalic Ear exam: PRESENT: normal external ear exam. ABSENT: bleeding, drainage Mouth exam: PRESENT: moist, tongue midline Respiratory exam: PRESENT: clear to auscultation helio, symmetrical, unlabored. ABSENT: rales, rhonchi, tachypnea, wheezes Cardiovascular exam: PRESENT: RRR, +S1, +S2. ABSENT: diastolic murmur, systolic murmur GI/Abdominal exam: PRESENT: normal bowel sounds, soft. ABSENT: distended, gua rding, tenderness Rectal exam: PRESENT: deferred Neurological exam: PRESENT: alert, awake, oriented to person, oriented to place, oriented to time, oriented to situation, CN II-XII grossly intact. ABSENT: motor sensory deficit Psychiatric exam: PRESENT: appropriate affect, normal mood. ABSENT: agitated, anxious Focused psych exam: ABSENT: delusional, restlessness Results Laboratory Results: 07/02/19 04:25 07/02/19 04:25 07/01/19 07/01/19 07/01/19 14:01 14:01 14:01 WBC 10.3 RBC 4.66 Hgb 13.6 Hct 38.8 MCV 83 MCH 29.1 MCHC 35.0 RDW 14.3 H Plt Count 294 Seg Neutrophils % 55.8 Sodium 141.3 Potassium 3.7 Chloride 104 Carbon Dioxide 27 Anion Gap 10 BUN 15 Creatinine 1.01 Est GFR ( Amer) > 60 Glucose 116 H Calcium 10.0 Magnesium Total Bilirubin 0.5 AST 53 H Alkaline Phosphatase 230 H Total Protein 8.4 H Albumin 4.4 Triglycerides Cholesterol LDL Cholesterol Direct VLDL Cholesterol HDL Cholesterol TSH 0.48 Urine Color Urine Appearance Urine pH Ur Specific [place] Urine Protein Urine Glucose (UA) Urine Ketones Urine Blood Urine Nitrite Ur Leukocyte Esterase Urine WBC (Auto) Urine RBC (Auto) 07/01/19 07/01/19 07/02/19 14:01 16:47 04:25 WBC RBC Hgb Hct MCV MCH MCHC RDW Plt Count Seg Neutrophils % Sodium 143.8 Potassium 3.4 L Chloride 104 Carbon Dioxide 27 Anion Gap 13 BUN 13 Creatinine 0.87 Est GFR ( Amer) > 60 Glucose 133 H Calcium 10.0 Magnesium 2.2 2.1 Total Bilirubin AST Alkaline Phosphatase Total Protein Albumin Triglycerides 68 Cholesterol 151.56 LDL Cholesterol Direct 83 VLDL Cholesterol 14.0 HDL Cholesterol 55 TSH Urine Color YELLOW Urine Appearance SLIGHTLY-CLOUDY Urine pH 5.0 Ur Specific [place] 1.017 Urine Protein 30 H Urine Glucose (UA) NEGATIVE Urine Ketones NEGATIVE Urine Blood MODERATE H Urine Nitrite NEGATIVE Ur Leukocyte Esterase NEGATIVE Urine WBC (Auto) 1 Urine RBC (Auto) 16 07/02/19 07/02/19 04:25 04:25 WBC 12.1 H RBC 4.68 Hgb 13.1 Hct 39.2 MCV 84 MCH 28.0 MCHC 33.5 RDW 14.7 H Plt Count 300 Seg Neutrophils % Sodium Potassium Chloride Carbon Dioxide Anion Gap BUN Creatinine Est GFR ( Amer) Glucose Calcium Magnesium Total Bilirubin AST Alkaline Phosphatase Total Protein Albumin Triglycerides Cholesterol LDL Cholesterol Direct VLDL Cholesterol HDL Cholesterol TSH 0.27 L Urine Color Urine Appearance Urine pH Ur Specific [place] Urine Protein Urine Glucose (UA) Urine Ketones Urine Blood Urine Nitrite Ur Leukocyte Esterase Urine WBC (Auto) Urine RBC (Auto) 07/01/19 07/01/19 07/01/19 14:01 14:01 16:47 Creatine Kinase 184 H CK-MB (CK-2) 1.21 Troponin I 0.032 0.037 NT-Pro-B Natriuret Pep 197 H 07/01/19 07/01/19 07/02/19 22:35 22:35 04:25 Creatine Kinase 192 H 200 H CK-MB (CK-2) 1.39 Troponin I 0.043 NT-Pro-B Natriuret Pep 07/02/19 04:25 Creatine Kinase CK-MB (CK-2) 1.54 Troponin I 0.051 NT-Pro-B Natriuret Pep Impressions: Chest X-Ray 07/01/19 13:40 IMPRESSION: NO ACUTE RADIOGRAPHIC FINDING IN THE CHEST. 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 transplanted heart: [place] heart Associated angina: angina presence unspecified Qualified Code(s): I25.10 - Atherosclerotic heart disease of [place] coronary artery without angina pectoris Is this a current diagnosis for this admission?: Yes (7) Diabetic neuropathy Qualifiers: Diabetes mellitus type: type 2 Diabetes mellitus complication detail: with other neurological complication Qualified Code(s): E11.49 - Type 2 diabetes mellitus with other diabetic neurological complication Is this a current diagnosis for this admission?: Yes (8) GERD (gastroesophageal reflux disease) Qualifiers: Esophagitis presence: without esophagitis Qualified Code(s): K21.9 - Gastro-esophageal reflux disease without esophagitis Is this a current diagnosis for this admission?: Yes (9) Hyperlipidemia, unspecified Qualifiers: Hyperlipidemia type: unspecified Qualified Code(s): E78.5 - Hyperlipidemia, unspecified Is this a current diagnosis for this admission?: Yes (10) Insomnia Qualifiers: Insomnia type: unspecified Qualified Code(s): G47.00 - Insomnia, unspecified Is this a current diagnosis for this admission?: Yes (11) Morbid obesity Is this a current diagnosis for this admission?: Yes - Plan Summary Summary: Patient is admitted observation status in a telemetry bed on the medical floor. She received usual supportive and symptomatic cares. Serial cardiac enzymes will be obtained. Patient's blood pressure control will be established with agents not prone to causing tachycardia specifically she will be treated with beta-blockers utilizing metoprolol succinate. Her usual home medications will be continued as appropriate with changes mentioned previously, once a verified and reconciled medication list is available. She will receive morphine sulfate 2 to 4 mg IV every 2 hours as needed for control of chest pain. She will receive Valium 10 mg IV every 4 hours as needed for extreme anxiety. She will be started on oral clonazepam 0.5 mg twice daily for her generalized anxiety disorder. Cardiology consultation will be obtained if needed. Before meals and at bedtime Accu-Cheks to be performed with sliding scale insulin provided for hyperglycemia and a hypoglycemic protocol in place. A registered dietitian consultation will be obtained in regard to her diabetes and obesity. 07/02/2019 The patient's blood pressure is still elevated. After long discussion she admitted to not taking her clonidine for several days. She states that she had some chest discomfort and took sublingual nitroglycerin on Sunday and Sunday. Because her pressure dropped with the nitroglycerin she did not take her clonidine (0.3 mg 3 times a day) with subsequent rebound severe hypertension. Dr. Yao is seen the patient in consultation. He was going to have the office send over her current medication list as she could not remember the dose of the clonidine. Once she is back on her baseline medications I believe her blood pressure will improve significantly. With regard to the diabetes, she does see an film and video editor. They have just started her on a new regimen approximately 2 weeks ago. She states that she does not tolerate the regimen that well and so I have encouraged her to reach out to the film and video editor for an appointment sooner than July. We will continue Accu-Cheks and sliding scale coverage. I will review her medication reconciliation and resume appropriate medications. She also has underlying coronary disease. We will resume her cardiac medications. She did have atypical chest pain previously but today there is no evidence of chest discomfort. We will resume medications for the remainder of her comorbidities and continue to monitor on telemetry along with Accu-Cheks and vital signs. - Time Time Spent with patient: 15-24 minutes Medications reviewed and adjusted accordingly: Yes Anticipated discharge: Home Within: within 24 hours
[2019-07-02] MEDS ORDERED: CLONIDINE HCL 0.1 MG TABLET PO ONE ×2 (11:30→12:15)
[2019-07-02 11:31] LABS: CREATINE KINASE MB 1.64 ng/mL (<4.55); TROPONIN I 0.054 ng/mL
[2019-07-02] MEDS ORDERED: ALLOPURINOL 100 MG TABLET PO SCH (12:00)
[2019-07-02] MEDS ORDERED: ATORVASTATIN CALCIUM 40 MG TABLET PO SCH (12:00)
[2019-07-02] MEDS ORDERED: ISOSORBIDE MONONITRATE 30 MG TAB.ER.24H PO SCH (12:00)
--- NOTE | 2019-07-02 13:44 | PDOC CONSULTATION ---
Consultation Consult Date: 07/02/19 Provider Consulted: Jhonatan MIMS Consult reason:: Severe hypertension. History of Present Illness Admission Date/PCP: 07/01/19 22:34 JOSÉ MIGUEL DECKER MD History of Present Illness: ARMIDA HILLS is a 48 year old female with a history of Diabetes mellitus with proteinuria, chronic hypertension being followed by us as outpatient, CAD, COPD, sleep apnea was admitted with history of some progressive shortness of breath over the last couple of days associated with headaches blurry vision. Evaluations done in the ER revealed that she had hypertensive urgency with a systolic blood pressures around 220. She was admitted for further evaluation and management. She was apparently given IV hydralazine which made her more tachycardic. Blood pressure today when I see her is close to 200. She says she however feels a whole lot better and the symptoms that she came in with have resolved. She denies any history of chest pains or palpitations or shortness of breath currently. No history of any flushing attacks. She mentions to me that her blood pressure at home approximately week ago was found to be around 90 systolic and therefore she decided on her own to discontinue the clonidine and therefore it has been about 4- 5 days since she has taken that. Medications were reviewed. Past Medical History Cardiac Medical History: Reports: Coronary Artery Disease, Hyperlipidemia, Hypertension-primary, Myocardial Infarction - 2011 AND 2018 Denies: Atrial Fibrillation, Peripheral Vascular Disease Pulmonary Medical History: Reports: Asthma, Sleep Apnea Denies: Chronic Obstructive Pulmonary Disease (COPD), Tuberculosis EENT Medical History: Denies: Cataracts, Ears - Hearing aids Neurological Medical History: Reports: Seizures, Other - Diabetic peripheral neuropathy Denies: Hemorrhagic CVA, Ischemic CVA Endocrine Medical History: Reports: Diabetes Mellitus Type 2, Obesity Denies: Diabetes Mellitus Type 1, Hyperthyroidism, Hypothyroidism Complications of Diabetes: Reports: None Renal/ Medical History: Denies: Hematuria, Nephrolithiasis Malignancy Medical History: Reports: None GI Medical History: Reports: Gastroesophageal Reflux Disease Denies: Cirrhosis, Crohn's Disease, Hepatitis, Ulcerative Colitis Musculoskeltal Medical History: Denies: Arthritis, Fibromyalgia, Gout Skin Medical History: Denies: Eczema, Psoriasis Psychiatric Medical History: Reports: Depression, General Anxiety Disorder, Tobacco Dependency, Other - Insomnia Denies: Alcohol Dependency, Substance Abuse Traumatic Medical History: Reports: None Infectious Medical History: Reports: None Past Surgical History Past Surgical History: Reports: Section - X 2, Cholecystectomy, Tonsillectomy - 1992 Denies: Pacemaker Social History Lives with: Family Smoking Status: Former Smoker Electronic Cigarette use?: No Frequency of Alcohol Use: None Hx Recreational Drug Use: No Drugs: None Hx Prescription Drug Abuse: No - Advance Directive Resuscitation Status: Full Code Family History Parental Family History Reviewed: Yes - Negative for ESRD Children Family History Reviewed: No Sibling(s) Family History Reviewed.: No Medication/Allergy Home Medications: Gabapentin [Neurontin 300 mg Capsule] 300 mg PO Q8 #30 cap 07/01/19 Allopurinol [Zyloprim 100 mg Tablet] 200 mg PO DAILY 07/02/19 Atorvastatin Calcium [Lipitor 40 mg Tablet] 40 mg PO DAILY 07/02/19 Baclofen [Baclofen 20 mg Tablet] 20 mg PO Q8HP PRN 07/02/19 Glipizide [Glucotrol Xl] 10 mg PO Q12 07/02/19 Insulin Degludec [Tresiba Flextouch U-100] 200 units SQ QHS 07/02/19 Insulin NPH Hum/Reg Insulin Hm [Novolin 70-30 Flexpen] 35 units SQ Q12 07/02/19 Isosorbide Mononitrate [Imdur 30 mg Tablet.er] 30 mg PO DAILY 07/02/19 Lisinopril/Hydrochlorothiazide [Lisinopril-Hctz 20-12.5 mg Tab] 1 tab PO Q12 07/02/19 Metoprolol Succinate [Toprol Xl 50 mg Tab.sr] 50 mg PO DAILY 07/02/19 Allergies/Adverse Reactions: No Known Allergies Allergy (Verified 07/01/19 13:26) Review of Systems Constitutional: PRESENT: headache(s). ABSENT: anorexia, chills, fatigue, fever(s), night sweats, weakness Nose, Mouth, and Throat: ABSENT: mouth pain, sore throat Cardiovascular: PRESENT: dyspnea on exertion. ABSENT: chest pain, edema, orthropnea, palpitations Respiratory: PRESENT: dyspnea. ABSENT: hemoptysis Gastrointestinal: ABSENT: abdominal pain, bloating, diarrhea, dysphagia, heartburn Genitourinary: ABSENT: dysuria, hematuria Musculoskeletal: ABSENT: deformity, joint swelling Integumentary: ABSENT: lesions, pruritus, rash Neurological: ABSENT: abnormal gait, abnormal movements, abnormal speech, confusion, convulsions, focal weakness Hematologic/Lymphatic: ABSENT: easy bruising, lymphadenopathy Physical Exam Vital Signs: Temp Pulse Resp BP Pulse Ox 98.3 F 103 H 18 185/101 H 100 07/02/19 11:37 07/02/19 12:17 07/02/19 11:37 07/02/19 12:17 07/02/19 11:40 Intake & Output 07/01/19 07/02/19 07/03/19 06:59 06:59 06:59 Intake Total 260 Output Total 0 Balance 260 Weight 122.5 kg General appearance: PRESENT: no acute distress Eye exam: PRESENT: EOMI, PERRLA. ABSENT: scleral icterus Ear exam: PRESENT: normal external ear exam Mouth exam: PRESENT: moist, neck supple Neck exam: ABSENT: meningismus, tenderness, thyromegaly, tracheal deviation Respiratory exam: PRESENT: clear to auscultation helio. ABSENT: crackles GI/Abdominal exam: PRESENT: normal bowel sounds, soft. ABSENT: organomegaly, renal bruit, tenderness Extremities exam: ABSENT: pedal edema Neurological exam: PRESENT: alert, awake, oriented to person, oriented to place Psychiatric exam: PRESENT: appropriate affect Skin exam: ABSENT: cyanosis, erythema, mottled Results Laboratory Results: 07/02/19 04:25 07/02/19 04:25 07/01/19 07/01/19 07/01/19 14:01 14:01 14:01 WBC 10.3 RBC 4.66 Hgb 13.6 Hct 38.8 MCV 83 MCH 29.1 MCHC 35.0 RDW 14.3 H Plt Count 294 Seg Neutrophils % 55.8 Sodium 141.3 Potassium 3.7 Chloride 104 Carbon Dioxide 27 Anion Gap 10 BUN 15 Creatinine 1.01 Est GFR ( Amer) > 60 Glucose 116 H Calcium 10.0 Magnesium Total Bilirubin 0.5 AST 53 H Alkaline Phosphatase 230 H Total Protein 8.4 H Albumin 4.4 Triglycerides Cholesterol LDL Cholesterol Direct VLDL Cholesterol HDL Cholesterol TSH 0.48 Urine Color Urine Appearance Urine pH Ur Specific [place] Urine Protein Urine Glucose (UA) Urine Ketones Urine Blood Urine Nitrite Ur Leukocyte Esterase Urine WBC (Auto) Urine RBC (Auto) 07/01/19 07/01/19 07/02/19 14:01 16:47 04:25 WBC RBC Hgb Hct MCV MCH MCHC RDW Plt Count Seg Neutrophils % Sodium 143.8 Potassium 3.4 L Chloride 104 Carbon Dioxide 27 Anion Gap 13 BUN 13 Creatinine 0.87 Est GFR ( Amer) > 60 Glucose 133 H Calcium 10.0 Magnesium 2.2 2.1 Total Bilirubin AST Alkaline Phosphatase Total Protein Albumin Triglycerides 68 Cholesterol 151.56 LDL Cholesterol Direct 83 VLDL Cholesterol 14.0 HDL Cholesterol 55 TSH Urine Color YELLOW Urine Appearance SLIGHTLY-CLOUDY Urine pH 5.0 Ur Specific [place] 1.017 Urine Protein 30 H Urine Glucose (UA) NEGATIVE Urine Ketones NEGATIVE Urine Blood MODERATE H Urine Nitrite NEGATIVE Ur Leukocyte Esterase NEGATIVE Urine WBC (Auto) 1 Urine RBC (Auto) 16 07/02/19 07/02/19 04:25 04:25 WBC 12.1 H RBC 4.68 Hgb 13.1 Hct 39.2 MCV 84 MCH 28.0 MCHC 33.5 RDW 14.7 H Plt Count 300 Seg Neutrophils % Sodium Potassium Chloride Carbon Dioxide Anion Gap BUN Creatinine Est GFR ( Amer) Glucose Calcium Magnesium Total Bilirubin AST Alkaline Phosphatase Total Protein Albumin Triglycerides Cholesterol LDL Cholesterol Direct VLDL Cholesterol HDL Cholesterol TSH 0.27 L Urine Color Urine Appearance Urine pH Ur Specific [place] Urine Protein Urine Glucose (UA) Urine Ketones Urine Blood Urine Nitrite Ur Leukocyte Esterase Urine WBC (Auto) Urine RBC (Auto) 07/01/19 07/01/19 07/01/19 14:01 14:01 16:47 Creatine Kinase 184 H CK-MB (CK-2) 1.21 Troponin I 0.032 0.037 NT-Pro-B Natriuret Pep 197 H 07/01/19 07/01/19 07/02/19 22:35 22:35 04:25 Creatine Kinase 192 H 200 H CK-MB (CK-2) 1.39 Troponin I 0.043 NT-Pro-B Natriuret Pep 07/02/19 07/02/19 07/02/19 04:25 10:42 10:42 Creatine Kinase 224 H CK-MB (CK-2) 1.54 1.64 Troponin I 0.051 0.054 NT-Pro-B Natriuret Pep Impressions: Chest X-Ray 07/01/19 13:40 IMPRESSION: NO ACUTE RADIOGRAPHIC FINDING IN THE CHEST. Assessment & Plan - Diagnosis (1) Hypertensive urgency Is this a current diagnosis for this admission?: Yes Plan: Likely secondary to clonidine rebound. Will reintroduce clonidine 0.1 now and start 0.2 3 times daily as compared to her 0.3 3 times daily she was taking at home a week earlier. Discussed about clonidine stoppage abruptly and the problems that it can cause. (2) Obstructive sleep apnea Is this a current diagnosis for this admission?: Yes Plan: Recommend CPAP at night. (3) Diabetes mellitus type 2 in obese Is this a current diagnosis for this admission?: Yes Plan: Advised tight control.
[2019-07-02] MEDS ORDERED: CLONIDINE HCL 0.2 MG TABLET PO SCH ×2 (14:00→22:00)
[2019-07-02 19:20] VITALS: BP 125/80
--- NOTE | 2019-07-02 21:05 | Left Against Medical Advice ---
Against Medical Advice Admission Date/Time: 07/01/19 22:34 Primary Care Provider: JOSÉ MIGUEL DECKER MD Date of Patient Emigration: 07/02/19 - Diagnosis: (1) Hypertensive emergency Is this a current diagnosis for this admission?: Yes (2) Atypical chest pain Is this a current diagnosis for this admission?: Yes (3) Generalized anxiety disorder Is this a current diagnosis for this admission?: Yes (4) Obstructive sleep apnea Is this a current diagnosis for this admission?: Yes (5) Hyperglycemia due to type 2 diabetes mellitus Is this a current diagnosis for this admission?: Yes (6) Coronary artery disease Is this a current diagnosis for this admission?: Yes (7) Diabetic neuropathy Is this a current diagnosis for this admission?: Yes (8) GERD (gastroesophageal reflux disease) Is this a current diagnosis for this admission?: Yes (9) Hyperlipidemia, unspecified Is this a current diagnosis for this admission?: Yes (10) Insomnia Is this a current diagnosis for this admission?: Yes (11) Morbid obesity Is this a current diagnosis for this admission?: Yes - Summary: Summary: Please see Admission and Progress Notes as well. ARMIDA HILLS is a 48 F, who LEFT AGAINST MEDICAL ADVICE. The Patient was admitted on 07/01/19 22:34. The patient was seen by Dr. Yao. A reduced dose of clonidine was started. The nurse called this evening and reported that the patient was leaving AGAINST MEDICAL ADVICE. The medication changes have been effective and her blood pressures were much better and she did not want to stay overnight and subsequently signed out AGAINST MEDICAL ADVICE. She does have follow-up appointments with nephrology, cardiology and endocrinology as well as primary care. Hopefully her compliance with medications will improve.
[2019-07-02] MEDS ORDERED: (PENDING PHARMACY ID) (Lisinopril/Hydrochlorothiazide [Lisinopril-Hctz 20-12.5 Mg Tab] 1 T PO SCH (22:00)
[2019-07-02] MEDS ORDERED: CLONIDINE HCL 0.1 MG TABLET PO SCH (22:00)
[2019-07-02] MEDS ORDERED: HYDROCHLOROTHIAZIDE 12.5 MG TABLET PO SCH (22:00)
[2019-07-02] MEDS ORDERED: GLIPIZIDE XL 5 MG TAB.ER.24 PO SCH (22:00)
[2019-07-02] MEDS ORDERED: GLIPIZIDE 10 MG PO SCH (22:00)
[2019-07-02] MEDS ORDERED: LISINOPRIL 10 MG TABLET PO SCH (22:00)
--- NOTE | 2019-07-02 22:28 | EKG REPORT ---
SEVERITY:- BORDERLINE ECG - SINUS TACHYCARDIA BORDERLINE PROLONGED QT INTERVAL : Confirmed by: Zeke Tariq 02-Jul-2019 22:27:12
== END 2019-07-02 18:45 | disposition left against medical advice (07) ==
LOC: ER 12:55 → EH 22:34 → 3W 07-02 00:15
PROVIDERS: ADMIT Emergency Medicine; ATTEND Emergency Medicine
DX: I16.1 Hypertensive emergency (principal); R07.89 Other chest pain; F41.1 Generalized anxiety disorder; G47.33 Obstructive sleep apnea (adult) (pediatric); E11.65 Type 2 diabetes mellitus with hyperglycemia; I25.10 Atherosclerotic heart disease of native coronary artery without angina pectoris; E11.49 Type 2 diabetes mellitus with other diabetic neurological complication; K21.9 Gastro-esophageal reflux disease without esophagitis; I25.2 Old myocardial infarction; E78.5 Hyperlipidemia, unspecified; G47.00 Insomnia, unspecified; E66.01 Morbid (severe) obesity due to excess calories; R94.31 Abnormal electrocardiogram [ECG] [EKG]; J44.9 Chronic obstructive pulmonary disease, unspecified; R10.33 Periumbilical pain; Z87.891 Personal history of nicotine dependence; Z79.899 Other long term (current) drug therapy; Z79.4 Long term (current) use of insulin
CPT/HCPCS: 93005; 99285; 36415 ×2; 82553 ×2; 82962 ×2; 82550 ×2; 83735 ×2; 84443 ×2; 85025; 85027; 80048; 80053; 81001; 84484 ×2; 83036; 80061; 87804; 83880; 71045; 93010; 94660; J1644; J0360; J3490 ×3; J2060; J2550 ×2